=== PATIENT | female | born 1995 | race Caucasian/White ===

== ENCOUNTER 2019-02-22 10:32 | Emergency (ER) | payer MEDICAID, SELFPAY ==
[2019-02-22] VITALS (39 sets, daily range): BP systolic 60–128; BP diastolic 28–94; PULSE 56–96; RESP 7–29; TEMP 36.6; O2SAT 96–100
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
[2019-02-22] MEDS: fentaNYL 100 MCG/2 ML VIAL (10:49)
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
[2019-02-22 11:10] LABS: Abs Immature Grans 0.04 k/cumm (0.0-0.09); Absolute Basophil Count 0.07 k/cumm (0.0-0.2); Absolute Lymphocyte Count 2.53 k/cumm (1.2-3.4); Basophils % 0.5; Eosinophils % 1.3; HCT 45.9 % (36.0-46.0); HGB 15.7 g/dL (12.0-15.5); Immature Grans % 0.3; Lymphocytes % 18.9; Mean Corp. HGB Concentration 34.2 g/dL (32.0-36.0); Mean Corpuscular Hemoglobin 29.9 pg (27.0-33.0); Mean Corpuscular Volume 87.4 fL (80-95); Mean Platelet Volume 12.8 fL (8.0-11.0); Monocytes % 8.2; Neutrophils % 70.8; Platelet Count 221 x1000/uL (130-400); RBC 5.25 m/cumm (4.00-5.20); RBC Distribution Width 13.1 % (11.7-14.6); White Blood Cell Count 13.36 k/cumm (4.4-10.8)
[2019-02-22 11:17] LABS: Absolute Eosinophil Count 0.17 k/cumm (0.0-0.7); Absolute Neutrophil Count 9.46 k/cumm (1.2-6.7)
[2019-02-22 11:20] LABS: ALT 29 U/L (12-78); AST 17 U/L (15-37); Albumin 3.9 g/dL (3.4-5.0); Alkaline Phosphatase 82 U/L (46-116); Anion Gap 9.1 mmol/L (3-11); BUN 13 mg/dL (7-18); Bilirubin, Total 0.8 mg/dL (0.2-1.0); CO2 24.9 mmol/L (21.0-32.0); CREATININE 0.96 mg/dL (0.55-1.02); Calcium 8.8 mg/dL (8.5-10.1); Chloride 106 mmol/L (98-107); Glucose 113 mg/dL (70-100); Lipase 40 U/L (73-393); Potassium 3.9 mmol/L (3.5-5.1); Sodium 140 mmol/L (136-145); Total Protein 7.8 g/dL (6.4-8.2)
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
[2019-02-22 11:24] LABS: PTT Activated 22.8 sec (21.0-31.4); Prothrombin Time 10.1 sec (9.3-11.0)
[2019-02-22] MEDS: MORPHine 10 MG/ML VIAL 4 MG IVP (11:35)
[2019-02-22] MEDS: Omnipaque 350 MG/ML 100 ML BTL IJ (11:41)
--- NOTE | 2019-02-22 11:41 | NUR.NOTE ---
Nursing Note: Pt set up for conscious sedation and reduction of L. hip dislocation. MD Flores, ortho MD, 2 RN's and Respiratory at bedside. End tidal capnography monitoring in place. Suction and BVM on standby at bedside. Oxygen administered via nasal cannula. Times are as followed: 11:38: informed consent signed 11:40:time out 11:41: 40 mg propofol administered 11:42 additional 40 mg of propofol administered 11:43 Reduction completed
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
--- NOTE | 2019-02-22 11:59 | DI.RAD_ITS ---
SYMPTOM/DIAGNOSIS: POST REDUCTION PELVIS AND LEFT HIP: 02/22/19 Post reduction images were obtained and show reduction of the previously noted posterior left femoral head dislocation. No fracture seen.
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
[2019-02-22] MEDS: Normal Saline 1,000 ML 1000 ML IV (12:04)
[2019-02-22] MEDS: Propofol 200 MG/20 ML VIAL 70 MG IVP (12:18)
--- NOTE | 2019-02-22 12:50 | DI.VRAD_ITS ---
EXAM: XR Left Hip with Pelvis when Performed EXAM DATE/TIME: 02/22/2019 12:00 PM CLINICAL HISTORY: 24 years old, female; Abnormal findings; Abnormal imaging test; Patient HX: Post reduction hip L TECHNIQUE: Imaging protocol: XR Left hip with pelvis when performed. Views: 2 or 3 views. COMPARISON: CR XR pelvis AP 02/22/2019 11:27 AM FINDINGS: Bones/joints: There has interval been reduction of the left hip dislocation. The femoral head is now well seated within the acetabulum. No acute fracture is seen. Soft tissues: Normal. IMPRESSION: Successful reduction of the left hip dislocation. No acute fracture. Dictated and Authenticated by: Kristi Tobias MD. Ordering:LIN Carballo MD
--- NOTE | 2019-02-22 13:06 | NUR.NOTE ---
Nursing Note: reduction of hip tolerated well pt tolerated sedation well no complications
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
== END 2019-02-22 13:05 | disposition short-term general hospital (02) ==
PROVIDERS: Emergency Provider Student in an Organized Health Care Education/Training Program; PCP Neuromusculoskeletal Medicine & OMM
DX: S73.002A Unspecified subluxation of left hip, initial encounter (principal); S01.01XA Laceration without foreign body of scalp, initial encounter; R20.2 Paresthesia of skin; V43.53XA Car driver injured in collision with pick-up truck in traffic accident, initial encounter
CPT/HCPCS: 27250; 36415; 73552; 74177; 80053; 83690; 86850; 86900; 86901; 90471; 96374; 96375; 99285; 70450; 71260; 72125; 72170; 73502; 85025; 85610; 85730; 99284; J2270; J3010; J3490

== ENCOUNTER 2019-03-01 15:40 | Emergency (ER) | payer MEDICAID, SELFPAY ==
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
[2019-03-01 15:47] VITALS: BP 142/84; PULSE 90; RESP 15; TEMP 37; O2SAT 100
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
[2019-03-01 16:26] VITALS: BP 142/84; PULSE 90; RESP 15; TEMP 37; O2SAT 100
== END 2019-03-01 16:26 | disposition home or self-care (01) ==
PROVIDERS: Emergency Provider Student in an Organized Health Care Education/Training Program; PCP Neuromusculoskeletal Medicine & OMM
DX: S01.01XA Laceration without foreign body of scalp, initial encounter (principal); V43.52XD Car driver injured in collision with other type car in traffic accident, subsequent encounter; Z48.02 Encounter for removal of sutures

== ENCOUNTER 2019-03-04 19:11 | Emergency (ER) | payer MEDICAID, SELFPAY ==
[2019-03-04 19:17] VITALS: BP 132/80; PULSE 81; RESP 16; TEMP 36.5; O2SAT 98
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
== END 2019-03-04 19:35 | disposition home or self-care (01) ==
PROVIDERS: Emergency Provider Physician Assistant; PCP Neuromusculoskeletal Medicine & OMM
DX: S01.01XD Laceration without foreign body of scalp, subsequent encounter (principal); V43.53XD Car driver injured in collision with pick-up truck in traffic accident, subsequent encounter; Z48.02 Encounter for removal of sutures

== ENCOUNTER 2022-08-11 00:28 | Outpatient (CLI) | payer MEDICAID, SELFPAY ==
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
== END 2022-08-11 00:48 ==
LOC: DI 00:29
PROVIDERS: PCP Neuromusculoskeletal Medicine & OMM; Visit Provider Nurse Practitioner Women's Health
DX: Z34.93 Encounter for supervision of normal pregnancy, unspecified, third trimester (principal); Z3A.28 28 weeks gestation of pregnancy
CPT/HCPCS: 76805

== ENCOUNTER 2022-08-14 02:18 | Outpatient (CLI) | payer MEDICAID, SELFPAY ==
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
== END 2022-08-14 02:38 ==
LOC: DI 02:18
PROVIDERS: PCP Neuromusculoskeletal Medicine & OMM; Visit Provider Nurse Practitioner Women's Health
DX: Z34.93 Encounter for supervision of normal pregnancy, unspecified, third trimester (principal); Z3A.29 29 weeks gestation of pregnancy
CPT/HCPCS: 76815

== ENCOUNTER 2022-08-16 04:16 | Outpatient (CLI) | payer MEDICAID, SELFPAY ==
[2022-08-16 11:19] LABS: Abs Immature Grans 0.11 10^3/uL (0.0-0.06); Absolute Basophil Count 0.04 10^3/uL (0.0-0.2); Absolute Eosinophil Count 0.09 10^3/uL (0.0-0.7); Absolute Lymphocyte Count 1.19 10^3/uL (1.2-3.4); Absolute Monocyte Count 0.43 10^3/uL (0.1-0.8); Basophils % 0.4; Eosinophils % 0.9; HCT 28.6 % (36.0-46.0); HGB 9.3 g/dL (11.2-15.7); Immature Grans % 1.1; Lymphocytes % 12.3; MCH 29.2 pg (27.0-33.0); MCHC 32.5 % (32.0-36.0); MCV 90 fL (80-95); MPV 11.4 fL (8.0-11.0); Monocytes % 4.5; Neutrophils % 80.8; Platelet Count 143 10^3/uL (130-400); RBC 3.18 10^6/uL (3.93-5.22); RDW 15.1 % (11.7-14.6); RDW-SD 49.4 fL; WBC 9.66 10^3/uL (4.4-10.8)
[2022-08-16 11:29] LABS: Glucose,1 Hr (Glucola) 161 mg/dL (80-140)
[2022-08-17 09:56] LABS: Hepatitis B Surface Ag Negative (Negative)
[2022-08-17 10:07] LABS: Varicella IgG Antibody Positive (See Note)
[2022-08-17 10:09] LABS: Rubella IgG Ab (UVM) Negative (See Note)
[2022-08-17 10:20] LABS: Hepatitis C Ab w Rflx HCV PCR Negative (Negative)
[2022-08-17 10:30] LABS: HIV-1/2 Ag & Ab Screen Negative (Negative)
[2022-08-17 19:15] LABS: Syphilis IgG w/Reflex Nonreactive (Nonreactive)
[2022-08-28 09:55] LABS: Panorama Kit Sent via Fed Ex
== END 2022-08-16 04:17 | disposition home or self-care (01) ==
LOC: LBO 04:16
PROVIDERS: Advanced Practice Midwife; PCP Neuromusculoskeletal Medicine & OMM; Visit Provider Advanced Practice Midwife
DX: Z34.93 Encounter for supervision of normal pregnancy, unspecified, third trimester (principal)
CPT/HCPCS: 36415; 82950; 86787; 86803; 86850; 86900; 86901; 87340; 87389; 85025; 86762; 86780

== ENCOUNTER 2022-08-16 11:29 | Outpatient (REF) | payer MEDICAID, SELFPAY ==
[2022-08-16 13:52] LABS: *AMPHETAMINES SCREEN URINE Negative (Negative); *BARBITURATES SCREEN URINE Negative (Negative); *BENZODIAZEPINES SCREEN URINE Negative (Negative); Cannabinoids THC Positive (Negative); Cocaine Screen,Urine Negative (Negative); METHADONE URINE SCREEN Negative (Negative); OPIATES URINE SCREEN Negative (Negative)
[2022-08-16 13:53] LABS: Tricyclic Antidepressants Negative (Negative)
[2022-08-19 14:01] LABS: Buprenorphine Negative ng/mL (Cutoff: 5.0)
== END 2022-08-16 11:30 | disposition home or self-care (01) ==
LOC: LBN 11:29
PROVIDERS: PCP Neuromusculoskeletal Medicine & OMM; Visit Provider Advanced Practice Midwife
DX: Z34.91 Encounter for supervision of normal pregnancy, unspecified, first trimester (principal)
CPT/HCPCS: 80307; 80348; 87086

== ENCOUNTER 2022-08-24 01:45 | Outpatient (CLI) | payer MEDICAID, SELFPAY ==
[2022-08-24 12:27] LABS: Glucose 1 Hour 178 mg/dL
[2022-08-24 14:25] LABS: Glucose 3 Hour 140 mg/dL
== END 2022-08-24 01:46 | disposition home or self-care (01) ==
LOC: LBO 01:45
PROVIDERS: PCP Neuromusculoskeletal Medicine & OMM; Visit Provider Advanced Practice Midwife
DX: R73.09 Other abnormal glucose (principal); Z34.93 Encounter for supervision of normal pregnancy, unspecified, third trimester
CPT/HCPCS: 36415; 82951

== ENCOUNTER 2022-08-29 19:31 | Outpatient (REF) | payer MEDICAID, SELFPAY ==
[2022-08-31 15:00] LABS: Chlamydia Result Negative (Negative); GC Result Negative (Negative)
== END 2022-08-29 19:32 | disposition home or self-care (01) ==
LOC: LBN 19:31
PROVIDERS: PCP Neuromusculoskeletal Medicine & OMM; Visit Provider Obstetrics & Gynecology
DX: O24.410 Gestational diabetes mellitus in pregnancy, diet controlled (principal); Z3A.30 30 weeks gestation of pregnancy
CPT/HCPCS: 87491; 87591

== ENCOUNTER 2022-09-22 11:40 | Outpatient (CLI) | payer MEDICAID, SELFPAY | END 2022-09-22 14:45 | LOC: BCD 11:41 → OBS 13:06 | PROVIDERS: PCP Neuromusculoskeletal Medicine & OMM; Visit Provider Obstetrics & Gynecology | CPT/HCPCS: 80053; 84550 ==

== ENCOUNTER 2022-10-04 02:21 | Outpatient (CLI) | payer MEDICAID, SELFPAY ==
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
== END 2022-10-04 02:41 ==
LOC: DI 02:21
PROVIDERS: PCP Neuromusculoskeletal Medicine & OMM; Visit Provider Obstetrics & Gynecology
DX: O24.410 Gestational diabetes mellitus in pregnancy, diet controlled (principal); Z3A.35 35 weeks gestation of pregnancy
CPT/HCPCS: 76816

== ENCOUNTER 2022-10-04 13:28 | Outpatient (REF) | payer MEDICAID, SELFPAY ==
[2022-10-04 13:33] LABS: *AMPHETAMINES SCREEN URINE Negative (Negative); *BARBITURATES SCREEN URINE Negative (Negative); *BENZODIAZEPINES SCREEN URINE Negative (Negative); Cannabinoids THC Positive (Negative); Cocaine Screen,Urine Negative (Negative); METHADONE URINE SCREEN Negative (Negative); OPIATES URINE SCREEN Negative (Negative)
[2022-10-04 13:39] LABS: Tricyclic Antidepressants Negative (Negative)
[2022-10-16 08:04] LABS: Buprenorphine Negative ng/mL (Cutoff: 5.0)
== END 2022-10-04 13:29 | disposition home or self-care (01) ==
LOC: LBN 13:28
PROVIDERS: PCP Neuromusculoskeletal Medicine & OMM; Visit Provider Obstetrics & Gynecology
DX: Z34.90 Encounter for supervision of normal pregnancy, unspecified, unspecified trimester (principal); O26.899 Other specified pregnancy related conditions, unspecified trimester; R80.9 Proteinuria, unspecified
CPT/HCPCS: 80307; 80348; 87081

== ENCOUNTER 2022-10-09 02:37 | Outpatient (CLI) | payer MEDICAID, SELFPAY ==
[2022-10-09 11:15] LABS: Abs Immature Grans 0.13 10^3/uL (0.0-0.06); Absolute Basophil Count 0.03 10^3/uL (0.0-0.2); Absolute Lymphocyte Count 1.39 10^3/uL (1.2-3.4); Absolute Monocyte Count 0.61 10^3/uL (0.1-0.8); Absolute Neutrophil Count 8.41 10^3/uL (1.2-6.7); Basophils % 0.3; Eosinophils % 0.9; HCT 30.5 % (36.0-46.0); HGB 9.8 g/dL (11.2-15.7); Immature Grans % 1.2; MCH 28.3 pg (27.0-33.0); MCHC 32.1 % (32.0-36.0); MCV 88 fL (80-95); MPV 11.4 fL (8.0-11.0); Monocytes % 5.7; Neutrophils % 78.9; Platelet Count 150 10^3/uL (130-400); RBC 3.46 10^6/uL (3.93-5.22); RDW 15.9 % (11.7-14.6); WBC 10.67 10^3/uL (4.4-10.8)
[2022-10-09 11:34] LABS: ALT 10 U/L (14-59); AST 9 U/L (15-37); Albumin 2.5 g/dL (3.4-5.0); Alkaline Phosphatase 126 U/L (46-116); Anion Gap 9.5 mmol/L (3-11); BUN 7 mg/dL (7-18); Bilirubin, Total 0.4 mg/dL (0.2-1.0); CO2 22.5 mmol/L (21.0-32.0); CREATININE 0.7 mg/dL (0.55-1.02); Calcium 8.6 mg/dL (8.5-10.1); Chloride 107 mmol/L (98-107); Estimated GFR 119.99 (mL/min/1.73m2); Glucose 140 mg/dL (74-106); Potassium 3.9 mmol/L (3.5-5.1); Sodium 139 mmol/L (136-145); Total Protein 6.6 g/dL (6.4-8.2)
[2022-10-09 19:42] LABS: PROTEIN 23.7 mg/dL (0.0-11.9); TOTAL PROTEIN,URINE TIMED 497.7 mg/24hr (0.0-149.1); Total Volume 2100 ml
== END 2022-10-09 02:38 | disposition home or self-care (01) ==
LOC: LBO 02:37
PROVIDERS: Advanced Practice Midwife; Obstetrics & Gynecology; PCP Neuromusculoskeletal Medicine & OMM; Visit Provider Advanced Practice Midwife
DX: O24.410 Gestational diabetes mellitus in pregnancy, diet controlled (principal); R80.9 Proteinuria, unspecified; Z3A.36 36 weeks gestation of pregnancy
CPT/HCPCS: 36415; 80053; 85027; 81050; 84155; 85025

== ENCOUNTER 2022-10-09 07:04 | Outpatient (CLI) | payer MEDICAID, SELFPAY ==
[2022-10-09 10:17] VITALS: BP 114/61; PULSE 85; TEMP 36.4
[2022-10-09 10:40] VITALS: BP 114/61; PULSE 85
--- NOTE | 2022-10-09 11:40 | W.OBNST ---
Date of service: 10/09/22 Time of Service: 10:50 NST Evaluation Reason for NST Reasons for Nonstress Test: GDM-INSULIN Gestational Age Gestational Age in Weeks and Days: 36 Weeks and 5Days Test and Monitor Explained Test/Monitor Explained: Test Explained, Monitor Explained and Patient Verbalized Understanding Vital Signs Blood Pressure: 114/61 Pulse: 85 Temperature: 97.6 F Urine Results Urine Protein: Positive Urine Ketones: Negative Urine Glucose: Negative Urine Blood: Negative NST Information Time on Monitor: 10:31 Date off Monitor: 10/09/22 Time off Monitor: 10:54 Contraction Frequency: 0 NST Evaluation Patient States Movement: Present FHR Baseline: 135 Variability: Moderate 6-25 bpm Accelerations: 15x15 Decelerations: None NST Results: Reactive Note N/A NST Note Note: NST is reactive and reassuring. Consult with Dr. Dotson as BG's (only fastings recorded) are elevated. Will increase her Lantus to 8 units at HS. I have strongly encouraged her to avoid simple sugars and carbs, to eat protein and vegetables and record her BG's for fasting and all PP until her return NST in 3 days. Plan will be to schedule IOL for 39 weeks unless otherwise indicated by BG's. She has completed a 24 hour urine and will go to lab after NST today. MELI NST Reviewed and Verified by: July Fox
[2022-10-09 11:41] VITALS: BP 114/61; PULSE 85; TEMP 36.4
== END 2022-10-09 10:58 | disposition home or self-care (01) ==
LOC: BCD 07:05 → OBS 10:03
PROVIDERS: PCP Neuromusculoskeletal Medicine & OMM; Visit Provider Advanced Practice Midwife
DX: O24.410 Gestational diabetes mellitus in pregnancy, diet controlled (principal); Z3A.36 36 weeks gestation of pregnancy
CPT/HCPCS: 59025

== ENCOUNTER 2022-10-12 07:19 | Outpatient (CLI) | payer MEDICAID, SELFPAY ==
[2022-10-12 13:20] VITALS: BP 131/58; PULSE 100
[2022-10-12 13:58] VITALS: BP 131/58; PULSE 100; TEMP 37
--- NOTE | 2022-10-12 14:04 | W.OBNST ---
Date of service: 10/12/22 Time of Service: 13:30 NST Evaluation Reason for NST Reasons for Nonstress Test: GDM-INSULIN Gestational Age Gestational Age in Weeks and Days: 37 Weeks and 1Days Test and Monitor Explained Test/Monitor Explained: Test Explained, Monitor Explained and Patient Verbalized Understanding Vital Signs Blood Pressure: 131/58 Pulse: 100 Temperature: 98.6 F Urine Results Urine Protein: Negative Urine Ketones: Negative Urine Glucose: Negative Urine Blood: Negative NST Information Date on Monitor: 10/12/22 Time on Monitor: 13:06 Date off Monitor: 10/12/22 Time off Monitor: 13:29 Total Time on Monitor: 23 NST Interventions: None Contraction Frequency: 0 NST Evaluation Patient States Movement: Present FHR Baseline: 150 Variability: Moderate 6-25 bpm Accelerations: 15x15 Decelerations: None NST Results: Reactive Note N/A NST Note Note: NST is reactive and reassuring. BG's remain elevated X 6 since Sunday. Will review with Dr. Smith. will return Sunday10/16/22. NST Reviewed and Verified by: July Fox
[2022-10-12 14:05] VITALS: BP 131/58; PULSE 100; TEMP 37
== END 2022-10-12 14:02 | disposition home or self-care (01) ==
LOC: BCD 07:19 → OBS 13:07
PROVIDERS: PCP Neuromusculoskeletal Medicine & OMM; Visit Provider Advanced Practice Midwife
DX: O24.410 Gestational diabetes mellitus in pregnancy, diet controlled (principal); Z3A.37 37 weeks gestation of pregnancy
CPT/HCPCS: 59025

== ENCOUNTER 2022-10-18 07:21 | Outpatient (CLI) | payer MEDICAID, SELFPAY ==
[2022-10-18 12:52] VITALS: BP 119/59; PULSE 90
[2022-10-18 13:41] VITALS: BP 119/59; PULSE 90; TEMP 36.6
--- NOTE | 2022-10-18 13:51 | W.OBNST ---
Date of service: 10/18/22 Time of Service: 13:51 NST Evaluation Reason for NST Reasons for Nonstress Test: GDM-INSULIN Gestational Age Gestational Age in Weeks and Days: 38 Weeks and 0Days Test and Monitor Explained Test/Monitor Explained: Test Explained, Monitor Explained and Patient Verbalized Understanding Vital Signs Blood Pressure: 119/59 Pulse: 90 Temperature: 97.9 F Urine Results Urine Protein: Negative Urine Ketones: Negative Urine Glucose: Negative Urine Blood: Negative NST Information Date on Monitor: 10/18/22 Time on Monitor: 12:38 Date off Monitor: 10/18/22 Time off Monitor: 12:56 Total Time on Monitor: 18 NST Interventions: Other Contraction Frequency: 0 NST Evaluation Patient States Movement: Present FHR Baseline: 150 Variability: Moderate 6-25 bpm Accelerations: 15x15 Decelerations: None NST Results: Reactive Note JUDI (GDM) Total JUDI: 9.88 Other Pertinent Findings: Presentation (cephalic) Coding for JUDI w/NST: Completed Exam NST Note Note: Category 1, reactive nonstress test. Bedside ultrasound performed for JUDI measures 9.88 cm. Fetus is vertex. NST Reviewed and Verified by: Deanna Smith
[2022-10-18 13:53] VITALS: BP 119/59; PULSE 90; TEMP 36.6
--- NOTE | 2022-10-18 13:54 | W.OBNST ---
Date of service: 10/18/22 Time of Service: 12:55 NST Evaluation Reason for NST Reasons for Nonstress Test: GDM-INSULIN Gestational Age Gestational Age in Weeks and Days: 38 Weeks and 0Days Test and Monitor Explained Test/Monitor Explained: Test Explained, Monitor Explained and Patient Verbalized Understanding Vital Signs Blood Pressure: 119/59 Pulse: 90 Temperature: 97.9 F Urine Results Urine Protein: Negative Urine Ketones: Negative Urine Glucose: Negative Urine Blood: Negative NST Information Date on Monitor: 10/18/22 Time on Monitor: 12:38 Date off Monitor: 10/18/22 Time off Monitor: 12:56 Total Time on Monitor: 18 NST Interventions: Other Contraction Frequency: 0 NST Evaluation Patient States Movement: Present FHR Baseline: 150 Variability: Moderate 6-25 bpm Accelerations: 15x15 Decelerations: None NST Results: Reactive Note N/A (see separate note by Dr. Smith. ) NST Note Note: NST is reactive and reassuring. Fasting BG for past 2 days still 100-103, will increase Lantus to 12 units in morning and [address] Smith also did JUDI today 9.88. Baby is direct OP on US today and I reviewed positions to try to encourage baby to rotate prior to IOL 10/26 at 39 weeks. She will return on Saturday 10/21 for NST and review of BG's. NST Reviewed and Verified by: July Fox
[2022-10-18 13:57] VITALS: BP 119/59; PULSE 90; TEMP 36.6
== END 2022-10-18 13:35 | disposition home or self-care (01) ==
LOC: BCD 07:31 → OBS 12:37
PROVIDERS: PCP Neuromusculoskeletal Medicine & OMM; Visit Provider Advanced Practice Midwife
DX: O24.414 Gestational diabetes mellitus in pregnancy, insulin controlled (principal); Z3A.38 38 weeks gestation of pregnancy
CPT/HCPCS: 59025

== ENCOUNTER 2022-10-21 07:39 | Outpatient (CLI) | payer MEDICAID, SELFPAY ==
[2022-10-21 12:00] VITALS: BP 131/60; PULSE 96; TEMP 36.8
--- NOTE | 2022-10-21 13:02 | W.OBNST ---
Date of service: 10/21/22 Time of Service: 12:15 NST Evaluation Reason for NST Reasons for Nonstress Test: GDM-INSULIN Gestational Age Gestational Age in Weeks and Days: 38 Weeks and 3Days Test and Monitor Explained Test/Monitor Explained: Test Explained, Monitor Explained and Patient Verbalized Understanding Vital Signs Blood Pressure: 131/60 Pulse: 96 Temperature: 98.2 F NST Information Date on Monitor: 10/21/22 Time on Monitor: 11:57 Date off Monitor: 10/21/22 Time off Monitor: 12:20 Total Time on Monitor: 23 NST Interventions: None Contraction Frequency: None NST Evaluation Patient States Movement: Present FHR Baseline: 145 Variability: Moderate 6-25 bpm Accelerations: 15x15 Decelerations: None NST Results: Reactive Note N/A NST Note Note: NST is reactive and reassuring. Insulin increased to 20 units at HS and to remain at 12 units in am. Consult with Dr. Dotson done. Will return for NST in 2 days, IOL 10/26. NST Reviewed and Verified by: July Fox
[2022-10-21 13:03] VITALS: BP 131/60; PULSE 96; TEMP 36.8
== END 2022-10-21 12:30 | disposition home or self-care (01) ==
LOC: BCD 07:50 → OBS 13:01
PROVIDERS: PCP Neuromusculoskeletal Medicine & OMM; Visit Provider Advanced Practice Midwife
DX: O24.414 Gestational diabetes mellitus in pregnancy, insulin controlled (principal); Z3A.38 38 weeks gestation of pregnancy
CPT/HCPCS: 59025

== ENCOUNTER 2022-10-23 07:57 | Outpatient (REF) | payer MEDICAID, SELFPAY ==
[2022-10-23 11:28] VITALS: BP 120/54; PULSE 86; TEMP 36.8
[2022-10-23 11:39] VITALS: BP 120/54; PULSE 86
--- NOTE | 2022-10-23 12:07 | W.OBNST ---
Date of service: 10/23/22 Time of Service: 11:45 NST Evaluation Reason for NST Reasons for Nonstress Test: GDM-INSULIN Gestational Age Gestational Age in Weeks and Days: 38 Weeks and 5Days Test and Monitor Explained Test/Monitor Explained: Test Explained, Monitor Explained and Patient Verbalized Understanding Vital Signs Blood Pressure: 120/54 Pulse: 86 Temperature: 98.2 F NST Information Date on Monitor: 10/23/22 Time on Monitor: 11:29 Date off Monitor: 10/23/22 Time off Monitor: 11:58 Total Time on Monitor: 29 NST Interventions: PO Hydration NST Evaluation Patient States Movement: Present FHR Baseline: 130 Variability: Moderate 6-25 bpm Accelerations: 15x15 Decelerations: None NST Results: Reactive Note N/A NST Note Note: NST is reactive and reassuring. BG's remain elevated, reviewed with Dr. Dotson and will increase both insulin doses for 4 units. New RX sent for 16 units in am and 24 at HS. NST Reviewed and Verified by: July Fox
[2022-10-23 12:09] VITALS: BP 120/54; PULSE 86; TEMP 36.8
== END 2022-10-23 11:59 | disposition home or self-care (01) ==
LOC: BCD 07:57
PROVIDERS: PCP Neuromusculoskeletal Medicine & OMM; Visit Provider Advanced Practice Midwife
DX: O24.414 Gestational diabetes mellitus in pregnancy, insulin controlled (principal); Z3A.38 38 weeks gestation of pregnancy
CPT/HCPCS: 59025

== ENCOUNTER 2022-10-26 13:05 | Inpatient (IN) | payer MEDICAID, SELFPAY ==
[2022-10-26 13:15] VITALS: BP 134/77; PULSE 107; RESP 16; TEMP 36.9
[2022-10-26 14:21] LABS: HCT 31.6 % (36.0-46.0); HGB 10.1 g/dL (11.2-15.7); MCH 27.6 pg (27.0-33.0); MCV 86 fL (80-95); MPV 11.8 fL (8.0-11.0); Platelet Count 157 10^3/uL (130-400); RBC 3.66 10^6/uL (3.93-5.22); RDW 15.8 % (11.7-14.6); RDW-SD 49.6 fL; WBC 11.07 10^3/uL (4.4-10.8)
[2022-10-26 14:26] LABS: Source Nasal/Nares
--- NOTE | 2022-10-26 14:34 | W.PM.OBHPL1 ---
Date of service: 10/26/22 Time of Service: 14:34 Assessment and Plan Assessment and plan (1) Encounter for induction of labor: Status: Acute Assessment and plan: Admit to Center. Comfort measures. Covid- 19 test. Membranes sweep performed due to favorable cervix and bulging membranes. Will consider misoprostol or AROM as indicated by cervical change. Anticipate . (2) Gestational diabetes: Status: Acute Assessment and plan: CMP on admission. Per consult with MD group on 10/24, will perform Finger stick blood glucose testing every 4 hours in early labor and hourly if indicated in active labor. Consider insulin infusion PRN. Regular diet with gestational diabetic food choices. I have recommended that Hailee avoid sweets during labor. (3) Proteinuria: Status: Acute Assessment and plan: admission UA, await results OB-HPI Labor/Delivery History of Present Illness Reason for Visit: Induction Chief Complaint: Scheduled Induction of Labor Indication for Induction: Gestational Diabetes (insulin controlled). LYNDSEY Calculator Estimated Delivery Date Method Current WG Current Estimate 11/01/22 Ultrasound #1 39w 1d Comments: Hailee is admitted for induction of labor due to insulin controlled gestational diabetes. Blood sugars have been in poor control with increasing doses of insulin required to manage. Proteinuria noted during with BP in normal range.Admission BP 134/77. History of Present Expected Delivery Route/Plan - CNM FOB - Bryan Leoncio (2nd child together) BG Specific Issues/Plan 1. Late entry to care at 28 weeks. 2. CF negative 2009 (in scanned labs) 3. panorama low risk x5 (no gender ID as it was identified on US) declines SMA 4. History of retained placenta and manual removal 2021, no transfusion or extended stay 5. Glucola at 161 @ 29 wks, 3 hr GTT F105/1h 178/2h 189/3h 140 5a. began testing 08/29 and bring log to next appt 5b. Dietary consult 08/29, 5c. Elevated fasting glucose, appt sched'ed for 09/25, DNKA Lantus 4 U 10/04 6. Hgb 9.3 at 29 wks, start oral iron supplement 7. Initial UDS at 29 weeks + THC, POSC discussed, repeat at 34-36 weeks 8. Rubella non-immune - discuss with Hailee, offer vaccine post 9. Had 2+ protein 08/29/22 per MD consult 09/19/22; 24 hour urine + protienuria, continue present management per consult with DR. Smith 10. IOL at 39 weeks____ PFSH All Active Problems (Updated 10/26/22 @ 14:38 by July Bedoya CNM) Encounter for induction of labor (Acute) Proteinuria (Acute) Depression (Chronic) Gestational diabetes (Acute) Rubella non-immune status, antepartum (Acute) Positive urine drug screen (Acute) thc + 29 weeks Elevated glucose (Acute) BMI 40.0-44.9, adult (Acute) (Acute) Late care (Acute) (Acute) Asthma (Chronic) uses inhaler Medical History (Updated 10/26/22 @ 14:38 by July Bedoya CNM) ASCUS with positive high risk HPV cervical (06/15/14) History of abnormal cervical Pap smear Normal 2018 and 2021 History of retained placenta manual removal, 2021 no blood transfusion No significant past medical history Surgical History No significant past surgical history Family History (Updated 08/16/22 @ 10:12 by July Fox CNM) Father Diabetes Maternal Grandmother Diabetes Maternal Grandfather Diabetes Self Depression sees pychiatrist Mili Vergara Mother Asthma Other Stroke Social History Smoking/Tobacco Use Status: Current every day Tobacco Type: cigarettes Smoking risk assessment performed?: Yes Alcohol Intake: current Alcohol Intake frequency: a few times a week Alcohol type: beer, wine and hard liquor Drug use: Never Substance use type: does not use Do you feel safe at home: Yes Do you feel safe in your relationship?: Yes History History 4 Para 3 Hx # Term Pregnancies 3 Multiple births Hx # Pregnancies Ectopic pregnancies AB induced Hx Number of Living Children AB spontaneous Past Pregnancies Del. Date GA/Weeks # Preg Succ Route Wgt Sex Labor Lgth Anesthesia Location [facility] 01/17/11 41 No Yes vaginal 6 lb 2 oz Female 12 Marisabel Castillo CN[facility] 03/20/15 40 No Yes vaginal 7 lb 8 oz Male 12 [facility] 11/30/21 39 No Yes vaginal 6 lb 3 oz Female 4 [facility] Delivery Date: 01/17/11 Last Updated by: July Bedoya CNM [place] Delivery Date: 03/20/15 Last Updated by: July Bedoya CNM [place] Delivery Date: 11/30/21 Last Updated by: July Bedoya CNM retained placenta with manual removal, Rapid delivey, Dee Dee Meds Allergies and Home Medications Allergies Allergy/AdvReac Type Severity Reaction Status Date / Time No Known Drug Allergies Allergy Verified 10/18/22 13:12 Home Medications Medication Instructions Recorded Confirmed Type albuterol sulfate 0.63 mg/3 mL 0.63 mg inhalation QID PRN 08/02/22 10/26/22 History solution for nebulization ferrous sulfate 325 mg (65 mg 325 mg PO DAILY #90 tabs 08/16/22 10/26/22 Rx iron) tablet,delayed release alcohol swabs (Alcohol Pads) 1 pad topical .4 times daily #100 08/24/22 10/26/22 Rx ea lancets #100 ea 08/24/22 10/18/22 Rx prenat.vits,enedina,[id number] 1 tab PO DAILY #30 tabs 09/13/22 10/26/22 Rx lancets 33 gauge (OneTouch Delica #100 ea 09/15/22 10/18/22 Rx Lancets) lancing device with lancets kit #100 ea 09/20/22 10/18/22 Rx (OneTouch Delica Lancing Device kit) blood sugar diagnostic (OneTouch #100 ea 09/21/22 10/18/22 Rx Ultra Test strips) pen needle, diabetic 33 gauge x #100 ea 10/04/22 10/18/22 Rx 3/16 (Comfort EZ Pen [place]) insulin glargine 100 unit/mL (3 16 unit (0.16 mL) subcut QAM #15 mL 10/23/22 10/26/22 Rx mL) subcutaneous pen (Lantus Solostar U-100 Insulin) insulin glargine 100 unit/mL (3 24 unit (0.24 mL) subcut QPM #15 mL 10/23/22 10/26/22 Rx mL) subcutaneous pen (Lantus Solostar U-100 Insulin) Exam Physical Exam Vital signs: Temp Pulse Resp BP 98.4 F 107 H 16 134/77 10/26/22 13:15 10/26/22 13:15 10/26/22 13:15 10/26/22 13:15 Detailed Labor and Delivery Exam Dilation: 2 Effacement (%): 80 station: -1 Cervix position: posterior Consistency: soft Johnson Score: Cervical Points Exam 0 1 2 3 Dilation Closed 1-2cm 3-4 cm 5-6cm Effacement 0-30% 40-50% 60-70% 80% Consistency Firm Medium Soft Station -3 -2 -1,0 +1,+2 Position Posterior Mid Anterior JOHNSON Score(Cervical Ripeness Score): 8 Amniotic Membrane Status: Intact Monitor Mode: External Contraction Frequency(min): irregular, mild Contraction Duration(sec): 60 Contraction Intensity: Mild Fetus A Heart Rate Baseline: 140 Monitor Accelerations: 15 X 15 Monitor Decelerations: None Variability: Moderate (6-25 BPM) Presentation: Vertex Categories: Category I Respiratory Exam Respiratory Exam: Normal Cardiovascular Exam Cardiovascular Exam: Normal Abdominal Exam Abdominal Exam: Normal Rectal Exam Rectal Exam: Normal Exam Exam: Normal Extremities Exam Extremities Exam: Normal Skin Exam Skin Exam: Normal Psychiatric Exam Psychiatric Exam: Normal Results Abnormal Lab Findings: Abnormal Labs 10/26/22 14:05 WBC 11.07 H RBC 3.66 L Hgb 10.1 L Hct 31.6 L RDW 15.8 H MPV 11.8 H Risk Assessment Risk for Shoulder Dystocia Historical/Initial OB: POSITIVE FOR: Pre- BMI>30; NEGATIVE FOR: Pelvic Abnormality, Previous Shoulder Dystocia or Previous Macrosomia 40 Weeks: NEGATIVE FOR: EFW> 4500 gms, Maternal Weight Gain >40lb or Post Dates Delivery Plan @ 40 wks: induction of labor at 39 weeks, increased risk due to EFW by jennifer's largest for her, increased maternal adipose tissue, Insulin dependent GDM. KH Risk for Pre-Eclampsia Date Initiated/Initials: 08/16/22 KH Yes, if one or more: NEGATIVE FOR: Hx Pre-E/Gest HTN, Chronic HTN, Multiple Gestation, Pre-gestational DM, Renal Disease, Systemic Lupus or APA Syndrome Yes, if 2 or more: POSITIVE FOR: BMI>30; NEGATIVE FOR: Nulliparity, Age>= 35 yrs, >10yr btwn pregnancies, ethinicty, Mother/Sister w/ Pre-E or Previous IUGR Risk for Post- Hemorrhage Initial: POSITIVE FOR: Previous PPH; NEGATIVE FOR: Multiple Gestation, Known Clotting Deficiency, Grand Multiparity or Anticoagulation At Risk?: Yes Risks Reviewed Risks Reviewed Upon Admission: Yes
[2022-10-26 14:43] LABS: ALT 13 U/L (14-59); AST 11 U/L (15-37); Albumin 2.6 g/dL (3.4-5.0); Alkaline Phosphatase 144 U/L (46-116); Anion Gap 8.5 mmol/L (3-11); BUN 7 mg/dL (7-18); Bilirubin, Total 0.5 mg/dL (0.2-1.0); CO2 21.5 mmol/L (21.0-32.0); CREATININE 0.7 mg/dL (0.55-1.02); Calcium 8.5 mg/dL (8.5-10.1); Chloride 107 mmol/L (98-107); Estimated GFR 119.99 (mL/min/1.73m2); Glucose 80 mg/dL (74-106); Potassium 3.9 mmol/L (3.5-5.1); Sodium 137 mmol/L (136-145); Total Protein 6.9 g/dL (6.4-8.2)
[2022-10-26 15:07] VITALS: BP 135/62; PULSE 96
[2022-10-26 15:08] LABS: COVID-19 PCR Negative (Negative)
[2022-10-26 15:48] LABS: Bilirubin Negative (Negative); Blood Trace-intact (Negative); Clarity Sl Cloudy (Clear); Glucose Negative (Negative); Ketones Negative (Negative); Leukocyte Esterase Negative (Negative); Nitrite Negative (Negative); Specific Gravity 1.025 (1.005-1.025); pH 6.5 (5-8)
[2022-10-26 15:49] LABS: Bacteria Few HPF (Negative); C & S Indicated? No/Sq. Contamination; Casts Negative LPF (Negative); Crystals Negative HPF (Negative); Epithelial Cells Many HPF (Negative); Mucus Trace (Negative); RBC 0-2 HPF (0-2)
--- NOTE | 2022-10-26 16:28 | W.PM.OBNL1 ---
Date of service: 10/26/22 Time of Service: 16:28 Pelvic Exam Dilation: 2 Effacement (%): 80 station: -1 Cervix Position: posterior Consistency: soft BISHOPS Score(Cervical Ripeness Score): 8 Contractions Monitor Mode: External Contraction Frequency(min): irregular Contraction Duration(sec): 50 Intensity: Mild Fetus A Amniotic Membrane Status: Intact Assessment Note: FHR 140 Assessment and Plan Assessment and plan (1) Encounter for induction of labor: Status: Acute Assessment and plan: Due to the census on the unit, further cervical ripening is not possible at this time. I will continue to assess for changes in labor pattern and consider discharge later tonight if induction is not possible with return tomorrow for IOL. Objective Abnormal lab results 10/26/22 10/26/22 10/26/22 Range/Units 14:05 14:05 14:45 WBC 11.07 H (4.4-10.8) 10^3/uL RBC 3.66 L (3.93-5.22) 10^6/uL Hgb 10.1 L (11.2-15.7) g/dL Hct 31.6 L (36.0-46.0) % RDW 15.8 H (11.7-14.6) % MPV 11.8 H (8.0-11.0) fL AST 11 L (15-37) U/L ALT 13 L (14-59) U/L Alkaline Phosphatase 144 H (46-116) U/L Albumin 2.6 L (3.4-5.0) g/dL Urine Protein Trace H (Negative) mg/dL Urine Blood Trace-intact H (Negative) Urine Urobilinogen 2.0 H (Up to 0.2) mg/dL Temp Pulse Resp BP 98.4 F 96 H 16 135/62 10/26/22 13:15 10/26/22 15:07 10/26/22 13:15 10/26/22 15:07 Laboratory Results WBC 11.07 10^3/uL (4.4-10.8) H 10/26/22 14:05 RBC 3.66 10^6/uL (3.93-5.22) L 10/26/22 14:05 Hgb 10.1 g/dL (11.2-15.7) L 10/26/22 14:05 Hct 31.6 % (36.0-46.0) L 10/26/22 14:05 MCV 86 fL (80-95) 10/26/22 14:05 MCH 27.6 pg (27.0-33.0) 10/26/22 14:05 MCHC 32.0 % (32.0-36.0) 10/26/22 14:05 RDW 15.8 % (11.7-14.6) H 10/26/22 14:05 Plt Count 157 10^3/uL (130-400) 10/26/22 14:05 MPV 11.8 fL (8.0-11.0) H 10/26/22 14:05 Sodium 137 mmol/L (136-145) 10/26/22 14:05 Potassium 3.9 mmol/L (3.5-5.1) 10/26/22 14:05 Chloride 107 mmol/L (98-107) 10/26/22 14:05 Carbon Dioxide 21.5 mmol/L (21.0-32.0) 10/26/22 14:05 Anion Gap 8.5 mmol/L (3-11) 10/26/22 14:05 BUN 7 mg/dL (7-18) 10/26/22 14:05 Creatinine 0.7 mg/dL (0.55-1.02) 10/26/22 14:05 Est GFR (CKD-EPI 2020) 119.99 (mL/min/1.73m2) 10/26/22 14:05 Glucose 80 mg/dL (74-106) 10/26/22 14:05 Calcium 8.5 mg/dL (8.5-10.1) 10/26/22 14:05 Total Bilirubin 0.5 mg/dL (0.2-1.0) 10/26/22 14:05 AST 11 U/L (15-37) L 10/26/22 14:05 ALT 13 U/L (14-59) L 10/26/22 14:05 Alkaline Phosphatase 144 U/L (46-116) H 10/26/22 14:05 Total Protein 6.9 g/dL (6.4-8.2) 10/26/22 14:05 Albumin 2.6 g/dL (3.4-5.0) L 10/26/22 14:05 Urine Color Yellow (Yellow) 10/26/22 14:45 Urine Clarity Sl Cloudy (Clear) 10/26/22 14:45 Urine pH 6.5 (5-8) 10/26/22 14:45 Ur Specific [place] 1.025 (1.005-1.025) 10/26/22 14:45 Urine Protein Trace mg/dL (Negative) H 10/26/22 14:45 Urine Ketones Negative mg/dL (Negative) 10/26/22 14:45 Urine Blood Trace-intact (Negative) H 10/26/22 14:45 Urine Nitrite Negative (Negative) 10/26/22 14:45 Urine Bilirubin Negative (Negative) 10/26/22 14:45 Urine Urobilinogen 2.0 mg/dL (Up to 0.2) H 10/26/22 14:45 Ur Leukocyte Esterase Negative (Negative) 10/26/22 14:45 Urine RBC 0-2 HPF (0-2) 10/26/22 14:45 Urine WBC 3-5 HPF (0-5) 10/26/22 14:45 Ur Epithelial Cells Many HPF (Negative) 10/26/22 14:45 Urine Crystals Negative HPF (Negative) 10/26/22 14:45 Urine Bacteria Few HPF (Negative) 10/26/22 14:45 Urine Casts Negative LPF (Negative) 10/26/22 14:45 Urine Mucus Trace (Negative) 10/26/22 14:45 Ur Culture Indicated? No/Sq. Contamination 10/26/22 14:45 Urine Glucose Negative mg/dL (Negative) 10/26/22 14:45 COVID-19 Source Nasal/Nares 10/26/22 14:20 SARS-CoV-2 (PCR) Negative (Negative) 10/26/22 14:20 Patient ABO/Rh O Positive 10/26/22 14:05 Antibody Screen NEGATIVE 10/26/22 14:05 Subjective Interval history since last seen: Hailee reports mild cramping and increased pressure. Random blood sugars 76 and 80. Results Hemoglobin/Hematocrit: Hgb 10.1 g/dL (11.2-15.7) L 10/26/22 14:05 Hct 31.6 % (36.0-46.0) L 10/26/22 14:05 Abnormal Lab Findings: Abnormal Labs 10/26/22 10/26/22 10/26/22 14:05 14:05 14:45 WBC 11.07 H RBC 3.66 L Hgb 10.1 L Hct 31.6 L RDW 15.8 H MPV 11.8 H AST 11 L ALT 13 L Alkaline Phosphatase 144 H Albumin 2.6 L Urine Protein Trace H Urine Blood Trace-intact H Urine Urobilinogen 2.0 H
[2022-10-26 17:50] VITALS: BP 118/56; PULSE 89; TEMP 36.7
[2022-10-26] MEDS: Insulin Glargine 300 UNITS/3 ML PEN 24 UNITS SC (20:11)
[2022-10-26 20:15] VITALS: BP 124/64; PULSE 96
--- NOTE | 2022-10-27 02:06 | W.PM.OBDISCH ---
Date of service: 10/26/22 Time of Service: 22:00 DS: Diagnosis Discharge Diagnosis (1) Gestational diabetes: Status: Acute Asessment and Plan: Hailee was having mild irregular contractions after cervical exams were performed. She was observed for a 4 hour period after the second exam was performed and there was no evidence of active labor. Urine protein was trace and blood sugar was WNL. Due to the census on the unit, IOL was not possible today. She was given the option of sleeping at the hospital or at home and resuming IOL when the unit census allows. She elected to go home to rest and will attempt induction of labor tomorrow. I will call Hailee in the morning to plan a time to return. Discharge Plan Disposition Patient Disposition: Home Condition: Good Discharge Details Reason For Visit: Induction Admit Date/Time: 10/26/22 13:05 Admit Provider: July Bedoya Attending Provider: July Bedoya Primary Care Provider: Michael Fairchild Home Meds and New Rx's Prescriptions: Continued albuterol sulfate 0.63 mg/3 mL solution for nebulization 0.63 mg inhalation QID PRN prenat.vits,enedina,[id number] Tablet 1 tab PO DAILY Qty: 30 8RF (DME) pen needle, diabetic [Comfort EZ Pen [place]] 33 gauge x 3/16 needle See Rx Instructions .Route Qty: 100 1RF Rx Instructions: As directed ferrous sulfate 325 mg (65 mg iron) tablet,delayed release (DR/EC) 325 mg PO DAILY Qty: 90 3RF alcohol swabs [Alcohol Pads] Pads, Medicated 1 pad topical .4 times daily Qty: 100 2RF (DME) lancets Misc See Rx Instructions .Route Qty: 100 0RF Rx Instructions: 4 times daily (DME) lancets [OneTouch Delica Lancets] 33 gauge misc See Rx Instructions .Route Qty: 100 3RF Rx Instructions: 4 times daily (DME) lancing device with lancets [OneTouch Delica Lanc Device] Kit See Rx Instructions .Route Qty: 100 2RF Rx Instructions: As directed (DME) OneTouch Ultra Test Strip See Rx Instructions .Route Qty: 100 3RF Rx Instructions: 4 times daily No Action insulin glargine [Lantus Solostar U-100 Insulin] 100 unit/mL (3 mL) insulin pen 16 unit subcut QAM Qty: 15 1RF insulin glargine [Lantus Solostar U-100 Insulin] 100 unit/mL (3 mL) insulin pen 24 unit subcut QPM Qty: 15 1RF Rx Instructions: 16 units subcutaneously every morning and 24 units subcutaneously every HS Discharge Instructions Activity:: Activity as Tolerated Equipment/Supplies:: No Equipment Needed Diet:: Normal Diet Discharge Orders Discharge Orders: Discharge Order (Routine); Ordered 10/26/22 Ordered By: July Bedoya Discharge Data Discharge Date/Time-TO BE ENTERED AT DEPARTURE: 10/26/22 20:47 OB:DS Summary Contraception Discussed Contraception Discussed: No, Status at Discharge Functional status at discharge: independent ambulation Overall status at discharge: patient is back to baseline Mental Status: mental status grossly normal Speech and Movement: speech and movement normal Mood: congruent mood Affect: normal affect Exam Physical Exam Vital signs: Temp Pulse Resp BP 98.1 F 96 H 16 124/64 10/26/22 17:50 10/26/22 20:15 10/26/22 13:15 10/26/22 20:15 PFSH All Active Problems (Updated 10/27/22 @ 02:14 by July Bedoya CNM) Depression (Chronic) Gestational diabetes (Acute) Rubella non-immune status, antepartum (Acute) Positive urine drug screen (Acute) thc + 29 weeks Elevated glucose (Acute) BMI 40.0-44.9, adult (Acute) (Acute) Late care (Acute) (Acute) Asthma (Chronic) uses inhaler Medical History (Updated 10/27/22 @ 02:14 by July Bedoya CNM) ASCUS with positive high risk HPV cervical (06/15/14) History of abnormal cervical Pap smear Normal 2018 and 2021 History of retained placenta manual removal, 2021 no blood transfusion No significant past medical history Surgical History No significant past surgical history Family History (Updated 08/16/22 @ 10:12 by July Fox CNM) Father Diabetes Maternal Grandmother Diabetes Maternal Grandfather Diabetes Self Depression sees pychiatrist Mili Vergara Mother Asthma Other Stroke Social History Smoking/Tobacco Use Status: Current every day Tobacco Type: cigarettes Smoking risk assessment performed?: Yes Alcohol Intake: current Alcohol Intake frequency: a few times a week Alcohol type: beer, wine and hard liquor Drug use: Never Substance use type: does not use Do you feel safe at home: Yes Do you feel safe in your relationship?: Yes History History 4 Para 3 Hx # Term Pregnancies 3 Multiple births Hx # Pregnancies Ectopic pregnancies AB induced Hx Number of Living Children AB spontaneous Past Pregnancies Del. Date GA/Weeks # Preg Succ Route Wgt Sex Labor Lgth Anesthesia Location [facility] 01/17/11 41 No Yes vaginal 6 lb 2 oz Female 12 Marisabel Castillo CNM 03/20/15 40 No Yes vaginal 7 lb 8 oz Male 12 [facility] [place] by [facility] 11/30/21 39 No Yes vaginal 6 lb 3 oz Female 4 [facility] Delivery Date: 01/17/11 Last Updated by: July Bedoya CNM [facility] Delivery Date: 03/20/15 Last Updated by: July Bedoya CNM [facility] Delivery Date: 11/30/21 Last Updated by: July Bedoya CNM retained placenta with manual removal, Dee Dee Amos DS: Data Vitals/I&O Vitals and I&O: Vital Signs Temperature 98.1 F 10/26/22 17:50 Temperature Source Oral 10/26/22 17:50 Pulse 96 H 10/26/22 20:15 Pulse Rhythm Regular 10/26/22 13:15 Respiratory Rate 16 10/26/22 13:15 Blood Pressure 124/64 10/26/22 20:15 Blood Pressure Mean 84 10/26/22 20:15 Oxygen Delivery Method Room Air 10/26/22 13:15 Oxygen Flow Rate 0 10/26/22 13:15 Pain Level 0 10/26/22 13:15 Intake & Output 10/26/22 10/26/22 10/27/22 11:59 23:59 11:59 Output Total 125 / 125 Balance -125 / -125 Weight 230 lb Output: Urine 125 / 125 Data Completed and Pending Labs on day of discharge: Labs from last 24 hours 10/26/22 10/26/22 10/26/22 14:45 14:20 14:05 WBC RBC Hgb Hct MCV MCH MCHC RDW Plt Count MPV Sodium 137 Potassium 3.9 Chloride 107 Carbon Dioxide 21.5 Anion Gap 8.5 BUN 7 Creatinine 0.7 Est GFR (CKD-EPI 2020) 119.99 Glucose 80 Calcium 8.5 Total Bilirubin 0.5 AST 11 L ALT 13 L Alkaline Phosphatase 144 H Total Protein 6.9 Albumin 2.6 L Urine Color Yellow Urine Clarity Sl Cloudy Urine pH 6.5 Ur Specific [place] 1.025 Urine Protein Trace H Urine Ketones Negative Urine Blood Trace-intact H Urine Nitrite Negative Urine Bilirubin Negative Urine Urobilinogen 2.0 H Ur Leukocyte Esterase Negative Urine RBC 0-2 Urine WBC 3-5 Ur Epithelial Cells Many Urine Crystals Negative Urine Bacteria Few Urine Casts Negative Urine Mucus Trace Ur Culture Indicated? No/Sq. Contamination Urine Glucose Negative COVID-19 Source Nasal/Nares SARS-CoV-2 (PCR) Negative Patient ABO/Rh Antibody Screen 10/26/22 10/26/22 14:05 14:05 WBC 11.07 H RBC 3.66 L Hgb 10.1 L Hct 31.6 L MCV 86 MCH 27.6 MCHC 32.0 RDW 15.8 H Plt Count 157 MPV 11.8 H Sodium Potassium Chloride Carbon Dioxide Anion Gap BUN Creatinine Est GFR (CKD-EPI 2020) Glucose Calcium Total Bilirubin AST ALT Alkaline Phosphatase Total Protein Albumin Urine Color Urine Clarity Urine pH Ur Specific [place] Urine Protein Urine Ketones Urine Blood Urine Nitrite Urine Bilirubin Urine Urobilinogen Ur Leukocyte Esterase Urine RBC Urine WBC Ur Epithelial Cells Urine Crystals Urine Bacteria Urine Casts Urine Mucus Ur Culture Indicated? Urine Glucose COVID-19 Source SARS-CoV-2 (PCR) Patient ABO/Rh O Positive Antibody Screen NEGATIVE
== END 2022-10-26 20:47 | disposition home or self-care (01) | DRG 832 ==
LOC: OBS 13:58
PROVIDERS: Admitting Provider Advanced Practice Midwife; PCP Neuromusculoskeletal Medicine & OMM; Visit Provider Advanced Practice Midwife
DX: O24.414 Gestational diabetes mellitus in pregnancy, insulin controlled (principal); O12.13 Gestational proteinuria, third trimester; Z3A.39 39 weeks gestation of pregnancy; Z53.8 Procedure and treatment not carried out for other reasons; O99.333 Smoking (tobacco) complicating pregnancy, third trimester; F17.210 Nicotine dependence, cigarettes, uncomplicated; O99.513 Diseases of the respiratory system complicating pregnancy, third trimester; J45.909 Unspecified asthma, uncomplicated; Z79.899 Other long term (current) drug therapy; Z20.822 Contact with and (suspected) exposure to COVID-19
CPT/HCPCS: 80053; 85027; 86850; 86900; 86901; 87635; 81003; 81015

== ENCOUNTER 2022-10-27 10:47 | Inpatient (IN) | payer MEDICAID, SELFPAY ==
[2022-10-27 12:04] VITALS: BP 116/65; PULSE 80
[2022-10-27 12:05] VITALS: BP 116/65; PULSE 80; RESP 16; TEMP 36.5
[2022-10-27] MEDS: miSOPROStol 25 MCG TAB PO (12:46)
[2022-10-27] MEDS: Insulin Glargine 300 UNITS/3 ML PEN 16 UNITS SC (12:59)
[2022-10-27 16:14] VITALS: BP 113/77; PULSE 93
[2022-10-27] MEDS: miSOPROStol 50 MCG TAB PO ×2 (17:16→21:15)
--- NOTE | 2022-10-27 18:44 | W.PM.OBHPL1 ---
Date of service: 10/27/22 Time of Service: 13:00 Assessment and Plan Assessment and plan (1) Gestational diabetes: Status: Acute Assessment and plan: Admit to Center. Comfort measures. Covid- 19 test negative yesterday. fingerstick Blood sugar every 4 hours while awake. Will start cervical ripening with misoprostol. Morning dose of insulin was ordered as Hailee has not taken insulin today. Lunch is ordered. Anticipate . OB-HPI Labor/Delivery History of Present Illness Reason for Visit: Gestational Diabetes Chief Complaint: Scheduled Induction of Labor Indication for Induction: Gestational Diabetes (diet controlled). LYNDSEY Calculator Estimated Delivery Date Method Current WG Current Estimate 11/01/22 Ultrasound #1 39w 2d Comments: Hailee was admitted yesterday for induction due to gestational diabetes which is insulin controlled. She is currently taking 16 units in the morning and 24 units in the evening. Due to census yesterday at the Center, she was discharged to home and returned this morning to resume induction. History of Present Expected Delivery Route/Plan - CNM FOB - Bryan Fang (2nd child together) BG Specific Issues/Plan 1. Late entry to care at 28 weeks. 2. CF negative 2009 (in scanned labs) 3. panorama low risk x5 (no gender ID as it was identified on US) declines SMA 4. History of retained placenta and manual removal 2021, no transfusion or extended stay 5. Glucola at 161 @ 29 wks, 3 hr GTT F105/1h 178/2h 189/3h 140 5a. began testing 08/29 and bring log to next appt 5b. Dietary consult 08/29, 5c. Elevated fasting glucose, MD appt sched'ed for 09/25, DNKA Lantus 4 U 10/04 6. Hgb 9.3 at 29 wks, start oral iron supplement 7. Initial UDS at 29 weeks + THC, POSC discussed, repeat at 34-36 weeks 8. Rubella non-immune - discuss with Hailee, offer vaccine post 9. Had 2+ protein 08/29/22 per MD consult 09/19/22; 24 hour urine + protienuria, continue present management per consult with DR. Smith 10. IOL at 39 weeks____ PFSH All Active Problems (Updated 10/27/22 @ 02:14 by July Bedoya CNM) Depression (Chronic) Gestational diabetes (Acute) Rubella non-immune status, antepartum (Acute) Positive urine drug screen (Acute) thc + 29 weeks Elevated glucose (Acute) BMI 40.0-44.9, adult (Acute) (Acute) Late care (Acute) (Acute) Asthma (Chronic) uses inhaler Medical History (Updated 10/27/22 @ 02:14 by July Bedoya CNM) ASCUS with positive high risk HPV cervical (06/15/14) History of abnormal cervical Pap smear Normal 2018 and 2021 History of retained placenta manual removal, 2021 no blood transfusion No significant past medical history Surgical History No significant past surgical history Family History (Updated 08/16/22 @ 10:12 by July Fox CNM) Father Diabetes Maternal Grandmother Diabetes Maternal Grandfather Diabetes Self Depression sees pychiatrist Mili Vergara Mother Asthma Other Stroke Social History Smoking/Tobacco Use Status: Current every day Tobacco Type: cigarettes Smoking risk assessment performed?: Yes Alcohol Intake: current Alcohol Intake frequency: a few times a week Alcohol type: beer, wine and hard liquor Drug use: Never Substance use type: does not use Do you feel safe at home: Yes Do you feel safe in your relationship?: Yes History History 4 Para 3 Hx # Term Pregnancies 3 Multiple births Hx # Pregnancies Ectopic pregnancies AB induced Hx Number of Living Children AB spontaneous Past Pregnancies Del. Date GA/Weeks # Preg Succ Route Wgt Sex Labor [facility] 41 No Yes vaginal 6 lb 2 oz Female 12 [facility] 03/20/15 40 No Yes vaginal 7 lb 8 oz Male 12 [facility] 11/30/21 39 No Yes vaginal 6 lb [address] [facility] Delivery Date: 01/17/11 Last Updated by: KATE Perdomo Delivery Date: 03/20/15 Last Updated by: July Bedoya CNM [facility] Delivery Date: 11/30/21 Last Updated by: July Bedoya CNM retained placenta with manual removal, Rapid Dee Dee swanson Meds Allergies and Home Medications Allergies Allergy/AdvReac Type Severity Reaction Status Date / Time No Known Drug Allergies Allergy Verified 10/18/22 13:12 Home Medications Medication Instructions Recorded Confirmed Type albuterol sulfate 0.63 mg/3 mL 0.63 mg inhalation QID PRN 08/02/22 10/27/22 History solution for nebulization ferrous sulfate 325 mg (65 mg 325 mg PO DAILY #90 tabs 08/16/22 10/27/22 Rx iron) tablet,delayed release alcohol swabs (Alcohol Pads) 1 pad topical .4 times daily #100 08/24/22 10/27/22 Rx ea lancets #100 ea 08/24/22 10/27/22 Rx prenat.vits,enedina,[id number] 1 tab PO DAILY #30 tabs 09/13/22 10/27/22 Rx lancets 33 gauge (OneTouch Delica #100 ea 09/15/22 10/27/22 Rx Lancets) lancing device with lancets kit #100 ea 09/20/22 10/27/22 Rx (OneTouch Delica Lancing Device kit) blood sugar diagnostic (OneTouch #100 ea 09/21/22 10/27/22 Rx Ultra Test strips) pen needle, diabetic 33 gauge x #100 ea 10/04/22 10/27/22 Rx 3/16 (Comfort EZ Pen [place]) insulin glargine 100 unit/mL (3 16 unit (0.16 mL) subcut QAM #15 mL 10/23/22 10/27/22 Rx mL) subcutaneous pen (Lantus Solostar U-100 Insulin) insulin glargine 100 unit/mL (3 24 unit (0.24 mL) subcut QPM #15 mL 10/23/22 10/27/22 Rx mL) subcutaneous pen (Lantus Solostar U-100 Insulin) Exam Physical Exam Vital signs: Temp Pulse Resp BP 97.7 F 93 H 16 113/77 10/27/22 12:05 10/27/22 16:14 10/27/22 12:05 10/27/22 16:14 Detailed Labor and Delivery Exam Dilation: 2 Effacement (%): 70 station: -2 Cervix position: posterior Consistency: soft Ojhnson Score: Cervical Points Exam 0 1 2 3 Dilation Closed 1-2cm 3-4 cm 5-6cm Effacement 0-30% 40-50% 60-70% 80% Consistency Firm Medium Soft Station -3 -2 -1,0 +1,+2 Position Posterior Mid Anterior JOHNSON Score(Cervical Ripeness Score): 6 Monitor Mode: External Contraction Frequency(min): occasional Contraction Duration(sec): 50 Contraction Intensity: Mild Fetus A Heart Rate Baseline: 135 Monitor Accelerations: 15 X 15 Monitor Decelerations: None Variability: Moderate (6-25 BPM) Presentation: Vertex Categories: Category I Respiratory Exam Respiratory Exam: Normal Cardiovascular Exam Cardiovascular Exam: Normal Abdominal Exam Abdominal Exam: Normal Exam Exam: Normal Extremities Exam Extremities Exam: Normal Skin Exam Skin Exam: Normal Psychiatric Exam Psychiatric Exam: Normal Results Results Group Beta Strep: Negative Blood Type: O+ Rubella Status: Nonimmune Varicella Immunity: Immune Risk Assessment Risk for Shoulder Dystocia Historical/Initial OB: POSITIVE FOR: Pre- BMI>30; NEGATIVE FOR: Pelvic Abnormality, Previous Shoulder Dystocia or Previous Macrosomia 40 Weeks: NEGATIVE FOR: EFW> 4500 gms, Maternal Weight Gain >40lb or Post Dates Increased Risk?: Yes Delivery Plan @ 40 wks: induction of labor at 39 weeks, increased risk due to EFW by jennifer's largest for her, increased maternal adipose tissue, Insulin dependent GDM. KH Risk for Pre-Eclampsia Daily Dose ASA Indicated: No Date Initiated/Initials: 08/16/22 Yes, if one or more: NEGATIVE FOR: Hx Pre-E/Gest HTN, Chronic HTN, Multiple Gestation, Pre-gestational DM, Renal Disease, Systemic Lupus or APA Syndrome Yes, if 2 or more: POSITIVE FOR: BMI>30; NEGATIVE FOR: Nulliparity, Age>= 35 yrs, >10yr btwn pregnancies, ethinicty, Mother/Sister w/ Pre-E or Previous IUGR Risk for Post- Hemorrhage Initial: POSITIVE FOR: Previous PPH; NEGATIVE FOR: Multiple Gestation, Known Clotting Deficiency, Grand Multiparity or Anticoagulation At Risk?: No Risks Reviewed Risks Reviewed Upon Admission: Yes
--- NOTE | 2022-10-27 18:55 | W.PM.OBNL1 ---
Date of service: 10/27/22 Time of Service: 18:55 Contractions Monitor Mode: External Contraction Frequency(min): irregular Contraction Duration(sec): 50 Intensity: Mild Fetus A Monitor: External (US) Heart Rate Baseline: 135 Presentation: Vertex Variability: Moderate (6-25 BPM) Categories: Category I Accelerations: 15 X 15 Decelerations: None Amniotic Membrane Status: Intact Assessment and Plan Assessment and plan (1) Gestational diabetes: Status: Acute Assessment and plan: Will hold evening insulin dose if blood sugar remains under 130. Hailee is eating a diabetic diet and avoiding added sugar beverages. (2) Encounter for induction of labor: Status: Resolved Assessment and plan: Continue to assess labor pattern. Patient's status reviewed with Dr. Smith who was present on the unit at 1700 and anticipate . Objective Temp Pulse Resp BP 97.7 F 93 H 16 113/77 10/27/22 12:05 10/27/22 16:14 10/27/22 12:05 10/27/22 16:14 Subjective Interval history since last seen: Hailee is experiencing mild contractions which are irregular. Most recent blood sugar is 103.
[2022-10-27 19:28] VITALS: BP 123/58; PULSE 95
[2022-10-27 20:38] VITALS: PULSE 99; O2SAT 97
[2022-10-27 20:44] VITALS: BP 113/77; PULSE 93; RESP 16; TEMP 36.8; O2SAT 98
[2022-10-28] VITALS (66 sets, daily range): BP systolic 96–144; BP diastolic 50–76; PULSE 75–148; RESP 4–20; TEMP 36.6–37.2; O2SAT 94–100
--- NOTE | 2022-10-28 01:48 | W.PM.OBNL1 ---
Date of service: 10/28/22 Time of Service: 01:48 Pelvic Exam Dilation: 2 Effacement (%): 70 station: -2 Cervix Position: posterior Consistency: soft BISHOPS Score(Cervical Ripeness Score): 6 Contractions Monitor Mode: External Contraction Frequency(min): every 2-3 Contraction Duration(sec): 50 Intensity: Moderate Fetus A Monitor: External (US) Heart Rate Baseline: 140 Presentation: Vertex Variability: Moderate (6-25 BPM) Categories: Category I Accelerations: 15 X 15 Decelerations: None Assessment and Plan Assessment and plan (1) Gestational diabetes: Status: Acute Assessment and plan: Most recent blood sugars 91 and 110. Evening dose of insulin was held and will consider insulin infusion if blood sugar elevations occur. (2) Encounter for induction of labor: Status: Resolved Assessment and plan: position changes encouraged for comfort. nitrous oxide provided for pain relief. Will re-assess in 2-3 hours or when indicated for pain relief options. Objective Temp Pulse Resp BP Pulse Ox 98.8 F 90 16 128/59 L 98 10/28/22 00:14 10/28/22 00:14 10/27/22 20:44 10/28/22 00:14 10/27/22 20:44 Laboratory Results Patient ABO/Rh O Positive 10/27/22 21:07 Antibody Screen NEGATIVE 10/27/22 21:07 Subjective Interval history since last seen: Hailee is experiencing back ache. She would like to discuss pain relief options.
[2022-10-28] MEDS: Lactated Ringers 1,000 ML 125 ML IV (03:18)
[2022-10-28] MEDS: Normal Saline Flush 10 ML SYR IVP (03:21)
--- NOTE | 2022-10-28 03:29 | W.ANESPRE ---
General Info Date of Service Date Performed: 10/28/22 Height: 5 ft 1 in Weight: 230 g Body Mass Index (BMI): 0.1 Meds Allergies and Home Medications Allergies Allergy/AdvReac Type Severity Reaction Status Date / Time No Known Drug Allergies Allergy Verified 10/18/22 13:12 Home Medication Medication Instructions Recorded albuterol sulfate 0.63 mg/3 mL 0.63 mg inhalation QID PRN 08/02/22 solution for nebulization ferrous sulfate 325 mg (65 mg 325 mg PO DAILY #90 tabs 08/16/22 iron) tablet,delayed release alcohol swabs (Alcohol Pads) 1 pad topical .4 times daily #100 08/24/22 ea lancets #100 ea 08/24/22 prenat.vits,enedina,jbi-uclv-lkhze 1 tab PO DAILY #30 tabs 09/13/22 lancets 33 gauge ([place] Loop Trolley #100 ea 09/15/22 Lancets) lancing device with lancets kit #100 ea 09/20/22 ([employer]als Lancing Device kit) blood sugar diagnostic ([place] #100 ea 09/21/22 Ultra Test strips) pen needle, diabetic 33 gauge x #100 ea 10/04/22 3/16 (Comfort EZ Pen [place]) insulin glargine 100 unit/mL (3 16 unit (0.16 mL) subcut QAM #15 mL 10/23/22 mL) subcutaneous pen (Lantus Solostar U-100 Insulin) insulin glargine 100 unit/mL (3 24 unit (0.24 mL) subcut QPM #15 mL 10/23/22 mL) subcutaneous pen (Lantus Solostar U-100 Insulin) Current Visit Medications: Current Medications Generic Name Dose Route Start Last Admin Trade Name Freq PRN Reason Stop Dose Admin Ringer's Solution 1,000 mls @ 200 mls/hr 10/27/22 11:00 10/28/22 03:18 IV 125 mls/hr INFUSION KARIN Administration Sodium Chloride 500 mls @ 0 mls/hr 10/27/22 10:47 Saline 500ml Bag IV PRN PRN As Directed IV Miscellaneous Supplies 1 each 10/27/22 11:00 Iv Access IV DIRECTED [facility] Insulin Glargine 16 units 10/27/22 12:45 10/27/22 12:59 Insulin Glargine 300 Units/3 Ml Pen SC 16 units QAM KARIN Administration Misoprostol 50 mcg 10/27/22 19:30 10/27/22 21:15 Misoprostol 50 Mcg Tab PO 50 mcg Q4H KARIN Administration Sodium Chloride 0 ml 10/27/22 10:47 10/28/22 03:21 Normal Saline Flush 10 Ml Syr IVP 10 ml PRN PRN Administration Terbutaline Sulfate 0.25 mg 10/27/22 10:47 Terbutaline 1 Mg/Ml Vial SC PRN PRN Zolpidem Tartrate 10 mg 10/27/22 21:00 Zolpidem 5 Mg Tab PO 10/28/22 06:00 2100 KARIN PFSH Active Problems Active Problems: Problem Status Onset Code Depression F32.A Gestational diabetes O24.419 Rubella non-immune status, antepartum O09.899, Z28.39 Positive urine drug screen R82.5 Elevated glucose R73.09 BMI 40.0-44.9, adult Z68.41 Z34.90 Late care O09.30 Z34.90 Asthma J45.909 Medical History Medical History (Updated 10/27/22 @ 02:14 by July Bedoya CNM) ASCUS with positive high risk HPV cervical (06/15/14) History of abnormal cervical Pap smear Normal 2018 and 2021 History of retained placenta manual removal, 2021 no blood transfusion No significant past medical history Surgical History Surgical History No significant past surgical history Tobacco Smoking/Tobacco Use Status: Current every day Tobacco Type: cigarettes Alcohol Alcohol Intake: current Alcohol intake frequency: a few times a week Alcohol type: beer, wine and hard liquor Substance Use Substance use: Never Substance use type: does not use Prental History History 4 Para 3 Hx # Term Pregnancies 3 Multiple births Hx # Pregnancies Ectopic pregnancies AB induced Hx Number of Living Children AB spontaneous Past Pregnancies Del. Date GA/Weeks # Preg Succ Route Wgt Sex Labor Lgth Anesthesia Location [facility] 01/17/11 41 No Yes [facility] 2778.253 [facility] No Yes vaginal 3401.943 g Male 12 [facility] 11/30/21 39 No Yes vaginal 2806.603 g Female 4 [place] Delivery Date: 01/17/11 Last Updated by: July Bedoya CNM [place] Delivery Date: 03/20/15 Last Updated by: July Bedoya CNM Mathe[place] Delivery Date: 11/30/21 Last Updated by: July Bedoya CNM retained placenta with manual removal, Rapid delivey, Dee Dee Vital Signs and Lab Results Vital Signs Most Recent Vital Signs in EMR: Most Recent Vital Signs Temp Pulse Resp BP Pulse Ox 36.8 C 90 16 128/59 L 98 10/28/22 03:21 10/28/22 00:14 10/27/22 20:44 10/28/22 00:14 10/27/22 20:44 Point of Care Results Point of Care Results: Finger Stick Blood Glucose 110 10/28/22 00:28 Lab Results Blood Type / Crossmatch: Patient ABO/Rh O Positive 10/27/22 Antibody Screen NEGATIVE 10/27/22 Complete Blood Count: White Blood Count 11.07 10^3/uL (4.4-10.8) H 10/26/22 14:05 Red Blood Count 3.66 10^6/uL (3.93-5.22) L 10/26/22 14:05 Hemoglobin 10.1 g/dL (11.2-15.7) L 10/26/22 14:05 Hematocrit 31.6 % (36.0-46.0) L 10/26/22 14:05 Platelet Count 157 10^3/uL (130-400) 10/26/22 14:05 Complete Metabolic Panel: Sodium 137 mmol/L (136-145) 10/26/22 14:05 Potassium 3.9 mmol/L (3.5-5.1) 10/26/22 14:05 Chloride 107 mmol/L (98-107) 10/26/22 14:05 Carbon Dioxide 21.5 mmol/L (21.0-32.0) 10/26/22 14:05 BUN 7 mg/dL (7-18) 10/26/22 14:05 Creatinine 0.7 mg/dL (0.55-1.02) 10/26/22 14:05 Est GFR (CKD-EPI 2020) 119.99 (mL/min/1.73m2) 10/26/22 14:05 Calcium 8.5 mg/dL (8.5-10.1) 10/26/22 14:05 Albumin 2.6 g/dL (3.4-5.0) L 10/26/22 14:05 Glucose 80 mg/dL (74-106) 10/26/22 14:05 Liver Function Panel: Alanine Aminotransferase (ALT/SGPT) 13 U/L (14-59) L 10/26/22 14:05 Aspartate Amino Transf (AST/SGOT) 11 U/L (15-37) L 10/26/22 14:05 Coagulation Panel: No Data to Display Cardiac Panel: No Data to Display Arterial Blood Gas: No Data to Display Venous Blood Gas: No Data to Display Pancreas Panel: No Data to Display Thyroid Panel: No Data to Display Infectious Disease: Coronavirus (COVID-19)(PCR) Negative (Negative) 10/26/22 14:20 Coronavirus 2019 Source Nasal/Nares 10/26/22 14:20 Blood Cultures: No Data to Display Toxicology Panel: Urine Amphetamines Screen Negative (Negative) 10/04/22 10:30 Urine Benzodiazepines Screen Negative (Negative) 10/04/22 10:30 Urine Barbiturates Screen Negative (Negative) 10/04/22 10:30 Urine Cocaine Screen Negative (Negative) 10/04/22 10:30 Urine Methadone Screen Negative (Negative) 10/04/22 10:30 Urine Opiates Screen Negative (Negative) 10/04/22 10:30 Ur Tricyclic Antidepressants Screen Negative (Negative) 10/04/22 10:30 Ur Tetrahydrocannabinol (THC) Scrn Positive (Negative) A 10/04/22 10:30 Panel: No Data to Display Anesthesia Assessment and Plan Anesthesia History Personal History: No History of Anesthesia Complications Family History: No Family History of Anesthesia Complications Exercise Tolerance Exercise Tolerance: Metabolic Equivalents>4 Cardiac & Pulmonary Exam Cardiac Exam: Normal S1/S2 Heart Sounds Pulmonary Exam: Clear Bilateral Breath Sounds Implantable Cardiac Device Does patient have a Pacemaker or an ICD?: No Airway Exam Known Difficult Airway: No Mallampati Class: 3 Mouth Opening: Normal (> 3cm) Thyromental Distance: Greater than 3 cm Neck Range of Motion: Full ROM Neck Circumference: Thick Teeth Condition: Normal Dentition ASA Classification ASA Score: ASA 3 Emergency Case?: No NPO Status NPO Status: Full Stomach Status Status: Confirmed Anesthesia Plan Resuscitation Status: Full Code Anesthesia Technique: Epidural Anesthesia Airway Planned: Natural Airway Pain Management: Epidural Monitors Used: Standard Monitors Preoperative Comments:: 27 yo female here for IOL requesting labor analgesia. 3 cm, 80% at 0314. Sig PMHx: BMI >40, depression, gestational DM (currently lantus), asthma (albuterol-rare, mostly with colds), Plt 157
[2022-10-28] MEDS: FentaNYL/ROPIvacaine 2 mcg/ml and 0.1% 200 ML CADD Cassette EP (03:52)
--- NOTE | 2022-10-28 04:14 | W.ANESNEU ---
Nerve Block Single Injection Procedure Date and Time Date Performed: 10/28/22 Procedure Start: 04:00 Location Where Procedure Performed Procedure Location: Obstetrics
--- NOTE | 2022-10-28 04:17 | W.ANESNEU ---
Epidural/Spinal Catheter Date Performed: 10/28/22 Procedure Start: 03:43 Procedure Stop: 04:00 Requesting Provider: July Bedoya Procedure Location: Obstetrics Reason Performed: Labor Epidural Standard Monitors Applied: ECG, Blood Pressure and SpO2 Patient Position: Sitting Sedation Given (Indicate Dose Given): No Sedation given Patient Mental Status: Awake Sterility: Hand Hygiene, Surgical Cap, Surgical Mask, Sterile Gloves, Sterile Drape/Sheet and Chlorhexidine Procedure Location: L2-L3 Interspace Epidural Needle: Tuohy 17 Guage Needle Length: 3.5 Inch Needle Approach: Midline Epidural Procedure: GRETCHEN to Saline Used, Epidural Catheter Placed (wire reinforced. ) and Negative CSF Flow Catheter Placed?: Catheter Placed Test Dose (Indicate Dose Given): 3ml 1.5% Lidocaine with 1:200K Epinephrine Given Loss of Resistance Depth (cm): 6 Catheter depth at skin (cm): 12 Dressing: Sorbaview Dressing Placed and Mastisol Used Epidural Provider Bolus (Indicate Dose Given): Total Ropivacaine 0.1% with Fentanyl 2mcg/ml Given from pump. (ml) Dose:: 5 mL Additives (Indicate Dose Given ): None Infusion Medication: Medication Infusion Began Medication Infusion: Ropivacaine 0.1% with Fentanyl 2mcg/ml Maintenance Infusion Rate (ml/hour): 10 PCEA Bolus Dose (ml): 5 Block Level: N/A Paresthesia: None Ultrasound: Used to jonathan site Number of Attempts (See previous attempts in note section): 1 Procedure Tolerated: No Complications Procedure Outcome: Successful Procedure Comment:: 5 mL load. BP down assocc with nausea, IVF bolus was started by OB. educated on PCEA. lose of cold sensation bilaterally. Performed By: Jack Oviedo
[2022-10-28] MEDS: Lactated Ringers 500 ML IV (04:19)
--- NOTE | 2022-10-28 04:39 | W.PM.OBNL1 ---
Date of service: 10/28/22 Time of Service: 04:39 Pelvic Exam Dilation: 3 Effacement (%): 90 station: -2 Position: LOP Cervix Position: mid Consistency: soft Comments: AROM perfrmed for a large amount of clear fluid Contractions Monitor Mode: External Contraction Frequency(min): every 3 minutes Contraction Duration(sec): 60 Intensity: Moderate Fetus A Monitor: External (US) Heart Rate Baseline: 150 Presentation: Vertex Variability: Moderate (6-25 BPM) Categories: Category I Accelerations: 15 X 15 Decelerations: None Amniotic Membrane Status: Ruptured Rupture Method: Artifical Amniotic Fluid: Clear Assessment and Plan Assessment and plan (1) Gestational diabetes: Status: Acute Assessment and plan: Blood sugar pending due to battery on meter charging. Await results. (2) Encounter for induction of labor: Status: Resolved Assessment and plan: Anticipate , re-examine in 2 hours or PRN. Objective Temp Pulse Resp BP Pulse Ox 98.3 F 100 H 16 128/61 99 10/28/22 04:13 10/28/22 04:30 10/27/22 20:44 10/28/22 04:30 10/28/22 04:05 Laboratory Results Patient ABO/Rh O Positive 10/27/22 21:07 Antibody Screen NEGATIVE 10/27/22 21:07 Subjective Interval history since last seen: Hailee began to feel more discomfort and she requested an epidural. Jack MOTA was paged and provided epidural which is having excellent effect.
[2022-10-28 04:40] LABS: Source Nasal/Nares
[2022-10-28] MEDS: Oxytocin/Normal Saline 30 UNIT/500 ML BAG 1 UNITS IV (05:06)
[2022-10-28 05:33] LABS: COVID-19 PCR Negative (Negative)
[2022-10-28] MEDS: miSOPROStol 200 MCG TAB 400 MCG SL (07:47)
[2022-10-28] MEDS: Methylergonovine 0.2 MG/ML VIAL (07:56)
[2022-10-28] MEDS: Lactated Ringers 1,000 ML 999 ML IV (08:05)
--- NOTE | 2022-10-28 08:32 | PLAC_PTH ---
PATIENT: Hailee Bae LOC: OBS U#:[id number] AGE/SX: 27/F ROOM: OBS.304 RE10/27/[address]: July Bedoya : 1995 BED: A DIS: 10/30/2022 SPEC #: [id number] RECD: 10/30/22 12:11 STATUS: AARON REQ #: [id number] HALINA: 10/28/22 08:[address]: July Bedoya DEPT: Surgical Specimen RECD BY: Jazzy Mckoy ENTERED: 10/30/22 12:16 SP TYPE: PLAC OTHR DR: Michael Fairchild Tissues: 1 - PLACENTA (3RD TRIMESTER) 2 - ,SPONTANEOUS Procedures: GROSS AND MICRO LEVEL 4 GROSS AND MICRO LEVEL 5 Comments: [id number]
[2022-10-28] MEDS: ELECTROLYTE-R SOLUTION 1,000 ML 30 ML IV (09:10)
[2022-10-28] MEDS: miSOPROStol 50 MCG TAB (10:02)
[2022-10-28] MEDS: Ondansetron 4 MG/2 ML VIAL IVP (10:43)
[2022-10-28] MEDS: Oxytocin/Normal Saline 30 UNIT/500 ML BAG 97 UNITS IV (10:45)
[2022-10-28] MEDS: Levalbuterol 1.25 MG/3 ML UPD VIAL UPD (11:10)
--- NOTE | 2022-10-28 11:30 | OBCE_ITS ---
Date of service: 10/28/22 Time of Service: 11:31 Assessment and Plan Assessment and plan (1) hemorrhage: Status: Acute Assessment and plan: I was called to evaluate the patient in the relatively early period after having a vaginal delivery complicated by shoulder dystocia, cord avulsion, manual removal of placenta and hemorrhage. In light of the clinical picture and relative hemodynamic instability, she was taken the operating room for exam under anesthesia, uterine curettage. Risk benefits and alternatives of surgical exploration by exam under anesthesia with dilation and curettage, possible laparotomy possible hysterectomy were all explained and informed consent had been obtained. History of Present Illness History of Present Illness Chief Complaint: hemorrhage Narrative: I was called to the bedside of the patient shortly after the patient had a vaginal delivery. She is a 27-year-old female well-known to our service who has had complicated by gestational diabetes that is insulin requiring. She presented yesterday for labor induction at term. She had a known history of previous retained placenta. Upon presentation to the floor, I was simultaneously paged due to the fact that the patient had a vaginal delivery complicated by a shoulder dystocia that was approximately 3 minutes to resolution. Manual removal of the placenta was warranted per the medical technician assistant and there was a moderate amount of bleeding. Upon my presentation to the room the patient had had approximately 1200 cc of bleeding. She was noted to be tachycardic with a pulse in the 130s with a slightly decreased blood pressure of 70s over 40s. By this time, she had received Pitocin, manual sweep of the uterus for moderate clot return. She had also received 400 mcg of oral misoprostol and 1 dose of Methergine. At this point she had a persistent amount of bleeding, with a concern at the lower uterine segment. On inspection of the placenta placenta appeared somewhat ragged consistent with manual removal of her placenta. In light of these facts with significant hemorrhage, uteroitonics, placental examination, and vital signs the decision was made for her to have surgical exploration. Risk benefits and alternatives of dilation and curettage, possible exploratory laparotomy, possible hysterectomy were explained to the patient. She understands the risk of infection, bleeding, injury to surrounding organs and full informed consent was obtained. In the process of preparing for her surgical exploration it was noted that the OR crew was currently in a surgical procedure as well as anesthesia. A second or crew and second forest ecology professor was called. In the intervening time, a Razia device was placed into the uterine cavity for ongoing assessment of her bleeding situation, and removal of clot if present. Consults Consult date: 10/28/22 Requesting physician: July Bedoya Review of Systems Narrative: At the time of my initial presentation to the labor suite patient was awake, alert, oriented, however complaining of feeling tired and thirsty, somewhat pale, with tachycardia and hypotension. Cardiovascular Comments: Denied chest pain Respiratory Comments: Denies shortness of breath PFSH All Active Problems (Updated 10/28/22 @ 11:39 by Deanna Smith DO) hemorrhage (Acute) Depression (Chronic) Gestational diabetes (Acute) Rubella non-immune status, antepartum (Acute) Positive urine drug screen (Acute) thc + 29 weeks Elevated glucose (Acute) BMI 40.0-44.9, adult (Acute) (Acute) Late care (Acute) (Acute) Asthma (Chronic) uses inhaler Medical History ASCUS with positive high risk HPV cervical (06/15/14) History of abnormal cervical Pap smear Normal 2018 and 2021 History of retained placenta manual removal, 2021 no blood transfusion No significant past medical history Surgical History No significant past surgical history Family History Father Diabetes Maternal Grandmother Diabetes Maternal Grandfather Diabetes Self Depression sees pychiatrist Mili Vergara Mother Asthma Other Stroke Social History Smoking/Tobacco Use Status: Current every day Tobacco Type: cigarettes Smoking risk assessment performed?: Yes Alcohol Intake: current Alcohol Intake frequency: a few times a week Alcohol type: beer, wine and hard liquor Drug use: Never Substance use type: does not use Do you feel safe at home: Yes Do you feel safe in your relationship?: Yes History History 4 Para 3 Hx # Term Pregnancies 3 Multiple births Hx # Pregnancies Ectopic pregnancies AB induced Hx Number of Living Children AB spontaneous Past Pregnancies Del. Date GA/Weeks # Preg Succ Route Wgt Sex Labor Lgth Anesth esia Location [facility] 01/17/11 41 No Yes vaginal 6 lb 2 oz Female 12 [facility] 03/20/15 40 No Yes vaginal 7 lb 8 oz Male 12 [facility] [place] 11/30/21 39 No Yes vaginal 6 lb 3 oz [place] Delivery Date: 01/17/11 Last Updated by: July Bedoya CNM [place] Delivery Date: 03/20/15 Last Updated by: July Bedoya CNM [place] Delivery Date: 11/30/21 Last Updated by: July Bedoya CNM retained placenta with manual removal, Rapid delivey, [place] Exam Narrative Exam Narrative: At the time of presentation, patient was pallorous, though alert and oriented. Tachycardic with hypotension. Const General: cooperative, well developed, acute distress, not diaphoretic and ill appearing Orientation: alert, awake and oriented x3 Resp Effort & Inspection: normal respiratory effort, no audible wheezes and no cough Cardio Rate: tachycardic GI Palpation: soft, not firm and no guarding OB/External & Speculum: bleeding Other: At the time my initial presentation uterus was firm at the fundus, though 2 to 3 cm above the umbilicus with moderate bright red bleeding. During attempts to control bleeding, initial attempt at placement of the date of her medical technician assistant was unsuccessful. On palpation, by me the J-tube was slid easily through the cervical opening and deployed. Balloon inflated with normal saline to 80 ml and placed on suction. Minimal blood return noted from the jaded device. Skin General skin exam: no rashes or lesions noted and pallor Neuro General: patient alert, patient awake and patient oriented x3 Results Last Vital Signs Temp 97.9 F 10/28/22 10:24 Pulse 95 H 10/28/22 10:24 Resp 19 10/28/22 10:24 BP 144/61 H 10/28/22 10:24 Pulse Ox 97 10/28/22 11:10 Labs Labs: Laboratory Results - last 24 hr 10/27/22 10/28/22 21:07 04:00 COVID-19 Source Nasal/Nares SARS-CoV-2 (PCR) Negative Patient ABO/Rh O Positive Antibody Screen NEGATIVE Crossmatch See Detail
--- NOTE | 2022-10-28 11:40 | W.PM.OP ---
Date of service: 10/28/22 Time of Service: 11:40 Operative Note Operative Note DATE OF PROCEDURE: 10/28/22 PRE-OP DIAGNOSIS: hemorrhage POST-OP DIAGNOSIS: same Status post vaginal delivery with shoulder dystocia PROCEDURE: Exam under anesthesia, uterine curettage SURGEON: Deanna Smith ANESTHESIA TYPE: General LMA/ETT Refer to Anesthesia Record ESTIMATED BLOOD LOSS: 100 PATHOLOGY: other (Uterine contents) COMPLICATIONS: None Patient was transported to: PACU Patient's condition: stable Findings: hemorrhage in the immediate period Procedure Description: Patient is a 27-year-old female who had recently had a vaginal delivery complicated by shoulder dystocia after labor induction at term due to insulin requiring gestational diabetes. She had a post hemorrhage with a total of 2 L. As of note, she also had a manual removal of her placenta with cord avulsion. After full informed consent of had been obtained, jaded device had been inserted into the uterine cavity, Webber catheter inserted, she was taken the operating room for exam under anesthesia, and uterine curettage. Upon presentation to the OR she was placed in the dorsal supine position, Webber catheter had been previously inserted, pneumatic compression stockings placed, general anesthesia administered via endotracheal intubation with ease. She was then placed in the modified dorsal lithotomy position and prepped and draped in the usual sterile fashion. Timeout was performed to confirm the previously mentioned procedure. At this point, exam under anesthesia revealed a cervical os that was open with a lower uterine segment that was somewhat atonic. Patient received ongoing Pitocin, and a dose of TXA. In light of her significant blood loss, she also had been typed and crossed and received 2 units of packed red blood cells. Weighted speculum was placed then into the posterior vaginal vault and a ring forcep used to grasp the anterior lip of the cervix. Manual exploration of the uterus followed by sharp curettage was performed until the coarse cry of the uterus could be felt in all 4 quadrants of the uterine cavity. In general the uterus was firm, though somewhat bulky. There was scant tissue return, however there was impression of retained fragments of placenta. Uterus remained firm. She did receive an additional 400 mcg of misoprostol rectally along with her Pitocin for uterine tonicity. With a systematic inspection, the uterine fundus was firm, lower segment was firm. Visualization of the entirety of the cervical os 3 failed to reveal any lesions. There were no vaginal lacerations. There is no evidence of pelvic hematoma. The perineum was intact. Uterus was firm and at the umbilicus to approximately 1 cm above at the completion of her procedure. There was no evidence of ongoing bleeding, and appropriate uterine tonicity achieved. Patient was taken to the postanesthesia care unit for recovery in stable condition. She was taken to the center there after for the remainder of her recovery. Debriefing was held with the center team, and family post procedure. Fluids: Crystalloid per anesthesia, 2 units packed red blood cells Complications: None apparent Pathology: Uterine contents EBL intraoperatively: 100 mL. As of note, patient had a 2 L blood loss prior to coming to the OR.
--- NOTE | 2022-10-28 12:05 | W.PM.OBNL1 ---
Date of service: 10/28/22 Time of Service: 06:30 Pelvic Exam Dilation: 9 Effacement (%): 100 station: +1 Position: CARL Cervix Position: anterior Consistency: soft Contractions Monitor Mode: External Contraction Frequency(min): every 3 Contraction Duration(sec): 60 Intensity: Strong Fetus A Monitor: External (US) Heart Rate Baseline: 150 Variability: Moderate (6-25 BPM) Categories: Category I Accelerations: 15 X 15 Decelerations: None Assessment and Plan Assessment and plan (1) Encounter for induction of labor: Status: Resolved Assessment and plan: Anticipate imminent . (2) Gestational diabetes: Status: Acute Assessment and plan: Most recent blood sugar is 99 Objective Abnormal lab results 10/27/22 Range/Units 21:07 Crossmatch See Detail Temp Pulse Resp BP Pulse Ox 97.9 F 95 H 19 144/61 H 97 10/28/22 10:24 10/28/22 10:24 10/28/22 10:24 10/28/22 10:24 10/28/22 11:10 Laboratory Results COVID-19 Source Nasal/Nares 10/28/22 04:00 SARS-CoV-2 (PCR) Negative (Negative) 10/28/22 04:00 Patient ABO/Rh O Positive 10/27/22 21:07 Antibody Screen NEGATIVE 10/27/22 21:07 Crossmatch See Detail 10/27/22 21:07 Subjective Interval history since last seen: Pitocin was ordered at 0445 and is now infusing at 2 mu/min. Hailee is complaining of pressure. Straight cathed for 75 cc concentrated urine. Results Abnormal Lab Findings: Abnormal Labs 10/27/22 21:07 Crossmatch See Detail
--- NOTE | 2022-10-28 12:10 | W.OBDELIVERY ---
Date of service: 10/28/22 Time of Service: 11:00 OB Labor/ Delivery Information Baby A Delivery Delivery Method: Spontaneaous Presentation: Vertex Cephalic Position: Vertex Vertex Position: Left Occipital Anterior Cord Description Comment: cord was tied in a knot around the baby's ankle. Amniotic Fluid: Clear Estimated Blood Loss: 1800 Delivery Outcome: Liveborn Complications: shoulder dystocia with resuscitation Infant Transferred: Remains with Mother (on warmer with ongoing observation. ) Note: Hailee had a strong urge to push. An anterior rim of cervix was reduced easily and she began bearing down well with contractions. FHTs were 140-150 during first stage of labor. FHTs 150s in second stage. Hailee began pushing well. Second stage huddle was done and risks of shoulder dystocia and post hemorrhage were identified due to previous retained placenta with her 3rd delivery and estimated weight of 8.5 lbs. There was spontaneous delivery of female infant's head delivered in CARL position. Turtle sign was identified. Hailee was encouraged to continue pushing as gentle downward traction on the anterior shoulder was performed. A shoulder dystocia was identified. A third nurse was called to the delivery room and notified of the shoulder dystocia. The supervisor fiber locking was called and instructed to page the combination technician pediatric provider, Dr. Sifuentes. I then attempted to deliver the posterior shoulder but due to limited space, I was unable to access the psoterior shoulder. Hailee was assisted to move to her hands and knees which allowed access for my hand to deliver the posterior shoulder followed by the anterior shoulder. The baby was dried and stimulated. A tight loop of cord was wrapped around the baby's ankle and the cord was noted to be short. The baby was noted to have decreased tone and respiratory effort and the cord was clamped and cut and the baby was transferred immediately to the warm for assessment. Pitocin 30 units was administered rapidly before delivery of the placenta. There was some bright bleeding and an attempt was made to deliver the placenta. Misoprostol 400 mcg PO was adminstered prior to placenta delivery. The cord broke approximately 3 inches from the placenta during attempt to deliver the placenta. The edge of the placenta was identified at the cervical os and it was delivered manually with maternal pushing efforts. It was examined and the body of the placenta appears to by intact with a three vessel cord. Some ragged areas of the placenta were noticed suggesting the possibility of retained fragments. The fundus was firm with massage but the lower uterine segment remained boggy. Heavy bright bleeding continued and methergine 0.2 mg IM was given. Clots were extracted and weighed. Dr. Smith was paged and was present on the unit and came in to the delivery room and she also examined the placenta. QBL was 1200 cc of clots and weights of blood on the chux under her. A decision was made by Dr. Smith to proceed with D and C for suspected retained placental fragments. As the OR was not readily available, a Vilma was placed. I removed clots from the lower uterine segment and attempted to place the Vilma device. I was unable to get all of the vilma into the upper portion of the uterus so Dr Smith placed the Vilma and it was attached to suction at 100 mm. There was a small amount of blood noted at that time in the suction tubing. The blood and amniotic fluid was assessed in the underbuttocks drape which had been removed and it was estimated at 300 cc with the amniotic fluid in the bag for a total estimated blood loss in the first 30 minutes after delivery of 1842cc. The perineum was inspected and appears to be intact. Hailee was transferred to the OR for a D and C. Providers Nurse Reconditioner: July Bedoya Nurse: Aubrey Sneed Nurse: Ilene Baires Labor/Delivery Information Number of Babies in Womb: 1 Steroids Given: None Reason Steroids Not Administered: N/A Group Beta Strep: Negative Antibiotics Administered: No Rubella Status: Nonimmune Blood Type: O+ Varicella Immunity: Immune Medication in Delivery: meso, methergyn Maternal Complications: Hemorrhage Shoulder Dystocia: Yes Stages of Labor Onset of Labor Date: 10/27/22 Onset of Labor Time: 10:50 Complete Dilatation Date: 10/28/22 Complete Dilatation Time: 07:00 Labor - Stage 1 Duration: 20 hours and 10 minutes ROM Baby A: 10/28/22 ROM Baby A: 04:15 ROM Total Time- Baby A: [id number] Delivery Date-Baby A: 10/28/22 Infant Delivery Time-Baby A: 07:32 Labor Stage 2 Duration: 32 minutes Placenta Delivery Date-Baby A: 10/28/22 Placenta Delivery Time-Baby A: 07:47 Labor-Stage 3 Duration: 15 minutes Total Length of Labor-Baby A: 20 hours and 42 minutes Placenta Cultured: Yes Placenta Status: Retained Baby A Infant Gender: Female Gestational Status: Term (39-41.6 wks) Gestational Age in Weeks/Days: 39 Weeks and 3 Days weight: 8 lb 1.279 oz Length-Baby A: 18.5 in Head Circumference-Baby A: 13.5 in Score-1 Minute Interval(Baby A) Heart Rate-1 minute: Below 100 BPM Respiratory Effort- 1 minute: No Spontaneous Effort Muscle Tone-1 minute: Minimal Flexion/Extension Reflex Response-1 minute: Minimal Response Color-1 minute: Pallor or Cyanosis Total Score-1 minute: 3 Score-5 Minute Interval(Baby A) Heart Rate- 5 minute: 100 BPM or Greater Respiratory Effort-5 minute: Spontaneous/Strong Cry Muscle Tone-5 minute: Active Movement Reflex Response-5 minute: Minimal Response Color-5 minute: [place]/No Cyanosis Total Score- 5 minute: 9 Shoulder Dystocia Delivery Times Date of Delivery of Head: 10/28/22 Time of Delivery of the Head: 07:29 Head to Body Delivery Interval(minutes): 3 minutes Verify No Fundal Pressure Applied Fundal Pressure: No Pressure Applied Arm Under Sympisis Arm Under Symphisis: Right Interventions 1st Intervention: Date: 10/28/22 Time: 07:29 SD Intervention: McRobert's Maneuver Note: with gentle downward traction. 2nd Intervention: Date: 10/28/22 Time: 07:30 SD Intervention: Suprapubic Pressure Note: combined with Houston maneuver and attempt to access the posterior shoulder and arm 3rd Intervention: Date: 10/28/22 Time: 07:31 SD Intervention: Posterior Arm Release Note: unsuccessful due to lack of space for accessing 4th Intervention: Date: 10/28/22 Time: 07:32 SD Intervention: Estrella's Maneuver Note: Attempt was made to deliver the posterior arm which was unsuccessful due to the arm being at the baby's side, the posterior shoulder was delivered with out difficulty followed by the anterior shoulder, resulting in delivery of the baby. Hemorrrhage Note Note Note: see Delivery note. 3 RNs in the room at delivery due to shoulder dystocia. Hemorrhage Recognized Date Hemorrhage Recognized: 10/28/22 Time Hemorrhage Recognized: 07:40 Call for Help Date: 10/28/22 Time: 07:30 2nd RN in Room Date: 10/28/22 Time: 07:30 2nd RN: Dawit Lock Provider in Room Date: 10/28/22 Time: 08:00 Provider: Deanna Smith [place] Uterine Compression Date: 10/28/22 Time: 07:48 RN Supervisor Soakers Notified Date: 10/28/22 Time: 07:32 RN Supervisor Soakers on Floor Date: 10/28/22 Time: 08:30 Supervisor Soakers: Nisa Arriola QBL Scale in Room Date: 10/28/22 Time: 07:50 OB Emergency Cart at Bedside Date: 10/28/22 Time: 07:50 IV Site Left Wrist: Date: 10/28/22 Time: 01:00 IV Catheter Gauge: 20 Right Hand: Date: 10/28/22 Time: 08:50 IV Catheter Gauge: 18 Webber Catheter Urinary Catheter Date of Insertion: 10/28/22 Time of insertion: 08:00 Urinary Catheter Size: 16 Inserted by: Elke Medication Administration 1st Administration: Medication: Oxytocin 30U/500 ml IV Medication Other/Dose/Route: cytotec Administration Date: 10/28/22 Administration Time: 07:40 Blood Started Date: 10/28/22 Time: 09:30 Second Provider in Room Date: 10/28/22 Time: 08:01 Provider: Deanna Smith Total Blood Loss for PPH Event Quantitative Blood Loss: 1,842 Transported to OR Date: 10/28/22 Time: 09:10
--- NOTE | 2022-10-28 12:13 | W.ANESPOSTOP ---
Postoperative Evaluation Date, Time and Location Date Performed: 10/28/22 Time Performed: 12:13 Patient Location: Obstetrics Vital Signs Most Recent Imported Vital Signs: Most Recent Vital Signs Temp Pulse Resp BP Pulse Ox 36.6 C 95 H 19 144/61 H 97 10/28/22 10:24 10/28/22 10:24 10/28/22 10:24 10/28/22 10:24 10/28/22 11:10 Pain Score Most Recent Pain Score: Most Recent Pain Score Pain Level [Abdomen] 5 10/27/22 20:44 Pain Level 8 10/28/22 03:21 Assessment Mental Status: Awake (Alert & Oriented to Patient Baseline) Airway and Respiratory Function: Patent airway with normal (patient baseline) respiratory exam Cardiovascular Function: Hemodynamically Stable Hydration Status: Adequately Hydrated Nausea & Vomiting: No Nausea or Vomiting Pain: Pain is tolerable per patient Peripheral Nerve Block: Patient did not receive a nerve block Postoperative Comments:: Discussed her severe bronchospasm in the OR and that she should follow up with her PCP in regards to her lungs.
[2022-10-28] MEDS: Ibuprofen 600 MG TAB PO ×2 (12:31→21:42)
[2022-10-28] MEDS: Acetaminophen 325 MG TAB 650 MG PO ×2 (12:31→21:42)
--- NOTE | 2022-10-28 13:33 | OBPPV_ITS ---
Date of service: 10/28/22 Time of Service: 13:33 Assessment and Plan Assessment and plan (1) Vaginal delivery: Status: Acute Assessment and plan: Patient had labor induction due to term, gestational diabetes, insulin requiring. She reserves cervical ripening, epidural for pain control, artificial rupture of membranes, Pitocin augmentation. At the time of her delivery she had a shoulder dystocia, placental avulsion, manual extraction of her placenta, hemorrhage, and what appears to be retained scant placental fragments. (2) Shoulder dystocia, delivered, current hospitalization: Status: Acute Assessment and plan: 3-minute dystocia per education liaison (3) hemorrhage: Status: Acute Assessment and plan: QBL of 2000 cc. Patient received Pitocin, Methergine, misoprostol, manual uterine exploration, placement of a jaded device, surgical exploration with exam under anesthesia and uterine curettage, TXA. She received 2 units of packed red blood cells intraoperatively for her 2 L blood loss. (4) Gestational diabetes: Status: Acute Assessment and plan: Stable blood pressures and blood sugars during her labor induction. We will check fasting blood glucose in the morning. If blood glucose is stable, would recommend 2-hour glucose screening at her 6-week checkup. Subjective Subjective Interval history: Patient is seen and examined at this point in the relatively immediate postoperative period. She is doing well. Her pain is well controlled. She is experiencing some uterine crampiness. She has no chest pain or shortness of b reath. She states that overall she is feeling somewhat better. She denies lightheadedness, or dizziness. Vital signs are reviewed. She remains to have some tachycardia. Blood pressure is stable. Urine output is adequate. baby status: Rooming in and Strong Bonding Observed Exam Physical Exam Vital signs: Temp Pulse Resp BP Pulse Ox 98.1 F 116 H 20 124/67 95 10/28/22 11:30 10/28/22 12:30 10/28/22 10:45 10/28/22 12:30 10/28/22 12:30 Notable Details: Still with some mild tachycardia. Stable blood pressure. Appropriate puls Constitutional Constitutional: no acute distress and obese HEENT Exam HEENT Exam: Normal Neck Exam Neck Exam: Normal Detailed Respiratory Exam Respiratory: Present wheezes (Bilateral bases); Absent accessory muscle use or decreased breath sounds Cardiovascular Exam Cardiovascular Exam: Normal Abdominal Exam Abdomen: Tender Fundal Exam Fundus: Firm Comment: 1 cm above the umbilicus, stable from delivery and surgery. Extremities Exam Extremity Exam: Normal and Other (Pneumatic compression stockings in place); negative Calf Tenderness Psychiatric Exam Psychiatric Exam: Normal Results Abnormal Lab Findings: Abnormal Labs 10/27/22 21:07 Crossmatch See Detail Hemorrrhage Note Hemorrhage Recognized Date Hemorrhage Recognized: 10/28/22 Time Hemorrhage Recognized: 07:40 Call for Help Date: 10/28/22 Time: 07:30 2nd RN in Room Date: 10/28/22 Time: 07:30 2nd RN: Dawit Lock Provider in Room Date: 10/28/22 Time: 07:50 Provider: Deanna Smith Bimanual Uterine Compression Date: 10/28/22 Time: 07:48 RN Desulfurizer Operator Notified Date: 10/28/22 Time: 08:30 RN Desulfurizer Operator on Floor Date: 10/28/22 Time: 07:45 Desulfurizer Operator: Nisa Arriola QBL Scale in Room Date: 10/28/22 Time: 07:50 OB Emergency Cart at Bedside Date: 10/28/22 Time: 07:50 Webber Catheter Urinary Catheter Date of Insertion: 10/28/22 Time of insertion: 07:55 Urinary Catheter Size: 16 Inserted by: Elke Blood Started Date: 10/28/22 Time: 09:30 Second Provider in Room Date: 10/28/22 Time: 08:01 Provider: Deanna Smith Total Blood Loss for PPH Event Quantitative Blood Loss: 1,800 Transported to OR Date: 10/28/22 Time: 09:10
[2022-10-28 14:09] LABS: HCT 32.3 % (36.0-46.0); HGB 10.7 g/dL (11.2-15.7); MCH 28.1 pg (27.0-33.0); MCHC 33.1 % (32.0-36.0); MCV 85 fL (80-95); MPV 11.5 fL (8.0-11.0); Platelet Count 143 10^3/uL (130-400); RBC 3.81 10^6/uL (3.93-5.22); RDW 15.7 % (11.7-14.6); RDW-SD 48.3 fL; WBC 24.35 10^3/uL (4.4-10.8)
[2022-10-28] MEDS: miSOPROStol 200 MCG TAB 600 MCG PO ×2 (14:10→22:45)
[2022-10-28] MEDS: Lactated Ringers 500 ML 1000 ML IV (15:01)
[2022-10-29] MEDS: Acetaminophen 325 MG TAB 650 MG PO ×3 (02:28→18:10)
[2022-10-29] MEDS: Levalbuterol 1.25 MG/3 ML UPD VIAL UPD (03:04)
[2022-10-29 03:29] VITALS: BP 116/70; PULSE 78; RESP 16; TEMP 36.6; O2SAT 98
[2022-10-29 06:46] LABS: Abs Immature Grans 0.08 10^3/uL (0.0-0.06); Absolute Basophil Count 0.05 10^3/uL (0.0-0.2); Absolute Eosinophil Count 0.03 10^3/uL (0.0-0.7); Absolute Lymphocyte Count 1.62 10^3/uL (1.2-3.4); Absolute Monocyte Count 1.03 10^3/uL (0.1-0.8); Absolute Neutrophil Count 10.12 10^3/uL (1.2-6.7); Basophils % 0.4; Eosinophils % 0.2; HGB 8.6 g/dL (11.2-15.7); Immature Grans % 0.6; Lymphocytes % 12.5; MCH 28.3 pg (27.0-33.0); MCHC 33.1 % (32.0-36.0); MCV 86 fL (80-95); MPV 12.2 fL (8.0-11.0); Neutrophils % 78.3; Platelet Count 113 10^3/uL (130-400); RBC 3.04 10^6/uL (3.93-5.22); RDW 16.5 % (11.7-14.6); RDW-SD 51.3 fL; WBC 12.93 10^3/uL (4.4-10.8)
[2022-10-29] MEDS: Ibuprofen 600 MG TAB PO ×2 (07:51→18:10)
[2022-10-29 08:00] VITALS: BP 106/70; PULSE 79; RESP 18; TEMP 36.3; O2SAT 97
--- NOTE | 2022-10-29 08:47 | W.PM.OBPNV1 ---
Date of service: 10/29/22 Time of Service: 08:47 Assessment and Plan Assessment and plan (1) Shoulder dystocia, delivered, current hospitalization: Status: Acute (2) hemorrhage: Status: Acute (3) Vaginal delivery: Status: Acute Assessment and plan: Patient is day #1 status post vaginal delivery complicated by 3-minute shoulder dystocia, and hemorrhage requiring uterotonic medication, OR for uterine curettage, 2 units packed red blood cells. Patient is stable this morning. We will discontinue her Webber catheter and her IV. Her course was complicated by insulin requiring gestational diabetes. We will check a fasting glucose today. As of note, the patient and her family are currently in temporary housing. We will connect for social work therapist. Ambulate. Shower. Subjective Subjective Interval history: Patient seen and examined this morning. Doing much better than yesterday. Hemoglobin is stable at 8.6. Vital signs are stable. Urine output is adequate. This morning we will discontinue her Webber catheter and remove her IV. Patient may shower. Risk for delayed hemorrhage Patient's Mood: good [place] baby status: Nursing well and Strong Bonding Observed Exam Physical Exam Vital signs: Temp Pulse Resp BP Pulse Ox 97.3 F L 79 18 106/70 97 10/29/22 08:00 10/29/22 08:00 10/29/22 08:00 10/29/22 08:00 10/29/22 08:00 Vital Signs Reviewed: Yes Constitutional Constitutional: no acute distress HEENT Exam HEENT Exam: Normal Neck Exam Neck Exam: Normal Respiratory Exam Respiratory Exam: Normal Cardiovascular Exam Cardiovascular Exam: Normal Abdominal Exam Abdomen: Tender Fundal Exam Fundus: Below Umbilicus and Firm Extremities Exam Extremity Exam: Normal and Edema (1+); negative Calf Tenderness Skin Exam Skin Exam: Normal Neurological Exam Neurological Exam: Normal Psychiatric Exam Psychiatric Exam: Normal Results Hemoglobin/Hematocrit: Hgb 8.6 g/dL (11.2-15.7) L D 10/29/22 06:02 Hct 26.0 % (36.0-46.0) L 10/29/22 06:02 Abnormal Lab Findings: Abnormal Labs 10/27/22 10/28/22 10/29/22 21:07 14:02 06:02 WBC 24.35 H 12.93 H RBC 3.81 L 3.04 L Hgb 10.7 L 8.6 L D Hct 32.3 L 26.0 L RDW 15.7 H 16.5 H Plt Count 113 L MPV 11.5 H 12.2 H Absolute Neutrophils 10.12 H Absolute Monocytes 1.03 H Crossmatch See Detail Hemorrrhage Note Hemorrhage Recognized Date Hemorrhage Recognized: 10/28/22 Time Hemorrhage Recognized: 07:40 Call for Help Date: 10/28/22 Time: 07:30 2nd RN in Room Date: 10/28/22 Time: 07:30 2nd RN: Dawit Lock Provider in Room Date: 10/28/22 Time: 08:00 Provider: Deanna Smith Bimanual Uterine Compression Date: 10/28/22 Time: 07:48 RN Artificial Limb Fitter Notified Date: 10/28/22 Time: 07:32 RN Artificial Limb Fitter on Floor Date: 10/28/22 Time: 08:30 Artificial Limb Fitter: Nisa Arriola QBL Scale in Room Date: 10/28/22 Time: 07:50 OB Emergency Cart at Bedside Date: 10/28/22 Time: 07:50 Webber Catheter Urinary Catheter Date of Insertion: 10/28/22 Time of insertion: 08:00 Urinary Catheter Size: 16 Inserted by: Elke Blood Started Date: 10/28/22 Time: 09:30 Second Provider in Room Date: 10/28/22 Time: 08:01 Provider: Deanna Smith Total Blood Loss for PPH Event Quantitative Blood Loss: 1,842 Transported to OR Date: 10/28/22 Time: 09:10
--- NOTE | 2022-10-29 11:22 | W.PM.OBPNV1 ---
Date of service: 10/29/22 Time of Service: 11:24 Assessment and Plan Assessment and plan (1) Vaginal delivery: Status: Acute Assessment and plan: without difficulty. Discharge planned for tomorrow with follow up at [facility] with KATE or MD. Tubal ligation planned at 6 weeks post and permit was signed with Dr Smith (2) Shoulder dystocia, delivered, current hospitalization: Status: Acute Assessment and plan: Discussed events of yesterday and opportunity provided for Hailee and her partner, Neeraj to ask questions and they stated that they don't have any questions and that they feel that everything has been explained well to them. Subjective Subjective Patient comments: No complaints and Pain well controlled Patient's Mood: She reports that she feels well emotionally [place] baby status: Nursing well [place] feeding status: Exclusively breast feeding Narrative: S/P induction of labor for insulin controlled gestational diabetes. Epidural analgesia. Spontaneous vaginal delivery with shoulder dystocia and post hemorrhage requiring D and C with removal of tissue sent to pathology for examination. Intact perineum. Transfusion with 2 units intraoperatively. Hgb and HCT this morning is 8.[address] Smith saw Hailee this morning. She is stitting up in a chair this morning and has showered. The baby has been evaluated by Dr. Sifuentes and is exhibiting decreased motion in right arm with good hand movement and vet assistant. Rubella is non immune and vaccine will be offered prior to discharge. Exam Physical Exam Vital signs: Temp Pulse Resp BP Pulse Ox 97.3 F L 79 18 106/70 97 10/29/22 08:00 10/29/22 08:00 10/29/22 08:00 10/29/22 08:00 10/29/22 08:00 Constitutional Constitutional: no acute distress Comments: Reports mild cramping. Additional findings Additional findings: Exam deferred to Dr Smith who assessed Hailee this morning. Results Hemoglobin/Hematocrit: Hgb 8.6 g/dL (11.2-15.7) L D 10/29/22 06:02 Hct 26.0 % (36.0-46.0) L 10/29/22 06:02 Abnormal Lab Findings: Abnormal Labs 10/27/22 10/28/22 10/29/22 21:07 14:02 06:02 WBC 24.35 H 12.93 H RBC 3.81 L 3.04 L Hgb 10.7 L 8.6 L D Hct 32.3 L 26.0 L RDW 15.7 H 16.5 H Plt Count 113 L MPV 11.5 H 12.2 H Absolute Neutrophils 10.12 H Absolute Monocytes 1.03 H Crossmatch See Detail Hemorrrhage Note Hemorrhage Recognized Date Hemorrhage Recognized: 10/28/22 Time Hemorrhage Recognized: 07:40 Call for Help Date: 10/28/22 Time: 07:30 2nd RN in Room Date: 10/28/22 Time: 07:30 2nd RN: Dawit Lock Provider in Room Date: 10/28/22 Time: 08:00 Provider: Deanna Smith Bimanual Uterine Compression Date: 10/28/22 Time: 07:48 RN Upholsterer Assembly Line Notified Date: 10/28/22 Time: 07:32 RN Upholsterer Assembly Line on Floor Date: 10/28/22 Time: 08:30 Upholsterer Assembly Line: Nisa MendenhallBL Scale in Room Date: 10/28/22 Time: 07:50 OB Emergency Cart at Bedside Date: 10/28/22 Time: 07:50 Webber Catheter Urinary Catheter Date of Insertion: 10/28/22 Time of insertion: 08:00 Urinary Catheter Size: 16 Inserted by: Elke Blood Started Date: 10/28/22 Time: 09:30 Second Provider in Room Date: 10/28/22 Time: 08:01 Provider: Deanna Smith Total Blood Loss for PPH Event Quantitative Blood Loss: 1,842 Transported to OR Date: 10/28/22 Time: 09:10
[2022-10-29 16:00] VITALS: BP 102/49; PULSE 74; TEMP 36.4; O2SAT 98
[2022-10-29] MEDS: Hydrocortisone 1% CR 30 GM TUBE TP ×2 (16:07→20:43)
[2022-10-29] MEDS: Docusate Sodium 100 MG CAP PO (18:10)
[2022-10-29 20:11] VITALS: BP 115/54; PULSE 82; RESP 16; TEMP 36.7; O2SAT 98
[2022-10-29] MEDS: diphenhydrAMINE 25 MG CAP PO (23:12)
[2022-10-30] MEDS: Ibuprofen 600 MG TAB PO ×2 (00:26→09:51)
[2022-10-30] MEDS: Acetaminophen 325 MG TAB 650 MG PO ×2 (00:26→09:51)
[2022-10-30] MEDS: Hydrocortisone 1% CR 30 GM TUBE TP (05:44)
[2022-10-30] MEDS: diphenhydrAMINE 25 MG CAP PO (05:49)
[2022-10-30 07:35] VITALS: BP 113/72; PULSE 80; RESP 18; TEMP 36.8; O2SAT 99
[2022-10-30] MEDS: Docusate Sodium 100 MG CAP PO (07:41)
--- NOTE | 2022-10-30 09:17 | W.PM.OBPNV1 ---
Date of service: 10/30/22 Time of Service: 09:17 Assessment and Plan Assessment and plan (1) Vaginal delivery: Status: Acute Assessment and plan: Patient is now day #2 status post vaginal delivery with significant shoulder dystocia. She subsequently had a hemorrhage after retained placenta with cord avulsion. She went to the operating room for exam under anesthesia and uterine curettage. She did receive 2 units packed red blood cells intraoperatively. Postoperatively, she did well and had stable vital signs, and good uterine tonicity. She had received antibiotics for prophylaxis intraoperatively as well. We will continue to watch her. She will be discharged home today. She will be seen back in the office in 1 week's time. She will have a Depo-Provera shot prior to her discharge and we would anticipate tubal sterilization after 6 weeks. (2) hemorrhage: Status: Acute (3) Shoulder dystocia, delivered, current hospitalization: Status: Acute (4) Housing insecurity: Status: Acute Assessment and plan: Supportive services have been engaged (5) Rubella non-immune status, antepartum: Status: Acute Assessment and plan: Will delay rubella vaccination until 6-week due to her current urticaria (6) Gestational diabetes: Status: Acute Assessment and plan: Will need 2-hour glucose tolerance test at her 6-week visit. Subjective Subjective Interval history: Patient seen and examined this morning. Doing well. Desires discharge home. She did develop hives over the evening last night. They are somewhat improved with oral Benadryl. Patient's Mood: Good [place] feeding status: Exclusively breast feeding Exam Physical Exam Vital signs: Temp Pulse Resp BP Pulse Ox 98.2 F 80 18 113/72 99 10/30/22 07:35 10/30/22 07:35 10/30/22 07:35 10/30/22 07:35 10/30/22 07:35 Vital Signs Reviewed: Yes Constitutional Constitutional: no acute distress and obese HEENT Exam HEENT Exam: Normal Neck Exam Neck Exam: Normal Respiratory Exam Respiratory Exam: Normal Cardiovascular Exam Cardiovascular Exam: Normal Abdominal Exam Abdomen: Tender Fundal Exam Fundus: Below Umbilicus and Firm Extremities Exam Extremity Exam: Normal and Edema (2+, bilateral); negative Redness Skin Exam Skin Exam: Abnormal (Urticaria, diffuse.) Results Hemoglobin/Hematocrit: Hgb 8.6 g/dL (11.2-15.7) L D 10/29/22 06:02 Hct 26.0 % (36.0-46.0) L 10/29/22 06:02 Abnormal Lab Findings: Abnormal Labs 10/27/22 10/28/22 10/29/22 21:07 14:02 06:02 WBC 24.35 H 12.93 H RBC 3.81 L 3.04 L Hgb 10.7 L 8.6 L D Hct 32.3 L 26.0 L RDW 15.7 H 16.5 H Plt Count 113 L MPV 11.5 H 12.2 H Absolute Neutrophils 10.12 H Absolute Monocytes 1.03 H Crossmatch See Detail Hemorrrhage Note Hemorrhage Recognized Date Hemorrhage Recognized: 10/28/22 Time Hemorrhage Recognized: 07:40 Call for Help Date: 10/28/22 Time: 07:30 2nd RN in Room Date: 10/28/22 Time: 07:30 2nd RN: Dawit Lock Provider in Room Date: 10/28/22 Time: 08:00 Provider: Deanna Smith Bimanual Uterine Compression Date: 10/28/22 Time: 07:48 RN Premium Note Interest Calculator Clerk Notified Date: 10/28/22 Time: 07:32 RN Premium Note Interest Calculator Clerk on Floor Date: 10/28/22 Time: 08:30 Premium Note Interest Calculator Clerk: Nisa BOWEN Scale in Room Date: 10/28/22 Time: 07:50 OB Emergency Cart at Bedside Date: 10/28/22 Time: 07:50 Webber Catheter Urinary Catheter Date of Insertion: 10/28/22 Time of insertion: 08:00 Urinary Catheter Size: 16 Inserted by: Elke Blood Started Date: 10/28/22 Time: 09:30 Second Provider in Room Date: 10/28/22 Time: 08:01 Provider: Deanna Smith Total Blood Loss for PPH Event Quantitative Blood Loss: 1,842 Transported to OR Date: 10/28/22 Time: 09:10
--- NOTE | 2022-10-30 09:34 | W.PM.OBDISCH ---
Date of service: 10/30/22 Time of Service: 09:34 DS: Diagnosis Discharge Diagnosis (1) Vaginal delivery: Status: Acute Asessment and Plan: Status post vaginal delivery complicated by shoulder dystocia (2) hemorrhage: Status: Acute Asessment and Plan: hemorrhage, 200 mL. Received 2 units packed red blood cells, oxytocics, examined anesthesia, uterine curettage. Stable postop day 2. (3) Shoulder dystocia, delivered, current hospitalization: Status: Acute (4) Housing insecurity: Status: Acute Asessment and Plan: environmental services attendant engaged (5) Rubella non-immune status, antepartum: Status: Acute Asessment and Plan: We will need rubella immunization at her 6-week checkup (6) Gestational diabetes: Status: Acute Asessment and Plan: 2-hour glucose tolerance test at 6-week checkup Discharge Plan Disposition Patient Disposition: Home Condition: Good Discharge Details Reason For Visit: Gestational Diabetes this is Sharri B[place] from [place] Admit Date/Time: 10/27/22 10:47 Admit Provider: July Bedoya Attending Provider: July Bedoya Primary Care Provider: Michael Fairchild Hospital Course Hospital Course: Patient was admitted for labor induction at term. She had gestational diabetic Beatties with insulin requirement. She had an induction of labor and at delivery a 3-minute shoulder dystocia. She also had a cord avulsion, and retained placenta. After delivery of the placenta, she had a hemorrhage of approximately 2 L. In light of the fact that her placenta was somewhat abnormal appearing, and with her hemorrhage with no other source the decision was made that she go to the operating room for exam under anesthesia and uterine curettage. Due to her large blood loss, she did receive 2 units of packed red blood cells and antibiotic prophylaxis due to significant uterine manipulation. Postoperatively from this point on, she remained stable with a uterus that was firm with appropriate lochia. Vital signs remained stable and her hemoglobin was stable at 8.6. She was discharged home with close follow-up. Her medications will include ibuprofen, Colace, oral and topical Benadryl for some urticaria that delivered within the last 24 hours. environmental services attendant are involved to assist with housing. Home Meds and New Rx's Prescriptions: New ibuprofen 800 mg tablet 800 mg PO Q8H Qty: 30 0RF docusate sodium [Colace] 100 mg capsule 100 mg PO DAILY Qty: 30 0RF diphenhydramine HCl [Benadryl Allergy] 25 mg tablet 25 mg PO Q6H PRNQty: 30 0RF Benadryl 2 % gel 1 applic topical TID PRNQty: 103 1RF Continued albuterol sulfate 0.63 mg/3 mL solution for nebulization 0.63 mg inhalation QID PRN ferrous sulfate 325 mg (65 mg iron) tablet,delayed release (DR/EC) 325 mg PO DAILY Qty: 90 3RF Discontinued alcohol swabs [Alcohol Pads] Pads, Medicated 1 pad topical .4 times daily Qty: 100 2RF insulin glargine [Lantus Solostar U-100 Insulin] 100 unit/mL (3 mL) insulin pen 16 unit subcut QAM Qty: 15 1RF insulin glargine [Lantus Solostar U-100 Insulin] 100 unit/mL (3 mL) insulin pen 24 unit subcut QPM Qty: 15 1RF Rx Instructions: 16 units subcutaneously every morning and 24 units subcutaneously every HS No Action prenat.vits,enedina,vbo-koes-rablv Tablet 1 tab PO DAILY Qty: 30 8RF (DME) pen needle, diabetic [Comfort EZ Pen [place]] 33 gauge x 3/16 needle See Rx Instructions .Route Qty: 100 1RF Rx Instructions: As directed (DME) lancets Misc See Rx Instructions .Route Qty: 100 0RF Rx Instructions: 4 times daily (DME) lancets [OneTouch Delica Lancets] 33 gauge misc See Rx Instructions .Route Qty: 100 3RF Rx Instructions: 4 times daily (DME) lancing device with lancets [OneTouch Delica Lanc Device] Kit See Rx Instructions .Route Qty: 100 2RF Rx Instructions: As directed (DME) OneTouch Ultra Test Strip See Rx Instructions .Route Qty: 100 3RF Rx Instructions: 4 times daily Discharge Instructions Stand Alone Forms: BC Instructions, BC Post Vaginal Deliver Activity:: Pelvic rest Equipment/Supplies:: No Equipment Needed Diet:: As Tolerated Discharge Orders Discharge Orders: Discharge Order (Routine); Ordered 10/30/22 Ordered By: Deanna Smith OB:DS Summary Summary Vaginal Delivery Method: Spontaneaous Episiotomy Description: None Laceration Description: None Laceration Extension: N/A Contraception Discussed Contraception Discussed: Yes (Depo prior to discharge, tubal in the interval.) Contraceptive Plan: Medroxyprogesterone, Gender-Baby A: Female weight: 8 lb 1.279 oz Status at Discharge Functional status at discharge: independent ambulation Overall status at discharge: patient is progressing back to baseline Mental Status: mental status grossly normal Speech and Movement: speech and movement normal Mood: congruent mood Affect: normal affect Exam Physical Exam Vital signs: Temp Pulse Resp BP Pulse Ox 98.2 F 80 18 113/72 99 10/30/22 07:35 10/30/22 07:35 10/30/22 07:35 10/30/22 07:35 10/30/22 07:35 Narrative: See physical examination from progress note dated 10/30/2022. PFSH All Active Problems (Updated 10/29/22 @ 17:09 by July Bedoya CNM) Housing insecurity (Acute) Shoulder dystocia, delivered, current hospitalization (Acute) Vaginal delivery (Acute) hemorrhage (Acute) Depression (Chronic) Gestational diabetes (Acute) Rubella non-immune status, antepartum (Acute) Positive urine drug screen (Acute) thc + 29 weeks BMI 40.0-44.9, adult (Acute) Late care (Acute) Asthma (Chronic) uses inhaler Medical History (Updated 10/29/22 @ 17:09 by July Bedoya CNM) ASCUS with positive high risk HPV cervical (06/15/14) History of abnormal cervical Pap smear Normal 2018 and 2021 History of retained placenta manual removal, 2021 no blood transfusion No significant past medical history Surgical History No significant past surgical history Family History Father Diabetes Maternal Grandmother Diabetes Maternal Grandfather Diabetes Self Depression sees pychiatrist Mili Vergara Mother Asthma Other Stroke Social History Smoking/Tobacco Use Status: Current every day Tobacco Type: cigarettes Smoking risk assessment performed?: Yes Alcohol Intake: current Alcohol Intake frequency: a few times a week Alcohol type: beer, wine and hard liquor Drug use: Never Substance use type: does not use Do you feel safe at home: Yes Do you feel safe in your relationship?: Yes History History 4 Para 3 Hx # Term Pregnancies 3 Multiple births Hx # Pregnancies Ectopic pregnancies AB induced Hx Number of Living Children AB spontaneous Past Pregnancies Del. Date GA/Weeks # Preg Succ Route Wgt Sex Labor Lgth Anesthesia Location [facility] [place] 01/17/11 41 No Yes vaginal 6 lb 2 oz Female 12 [facility] 03/20/15 40 No Yes vaginal 7 lb 8 oz Male 12 [facility] 11/30/21 39 No Yes vaginal 6 lb 3 oz Female 4 [facility] Delivery Date: 01/17/11 Last Updated [facility]: [facility]: 03/20/15 Last Updated by: July Bedoya CNM [facility] Delivery Date: 11/30/21 Last Updated by: July Bedoya CNM retained placenta with manual removal, Dee Dee Amos DS: Data Vitals/I&O Vitals and I&O: Vital Signs Temperature 98.2 F 10/30/22 07:35 Temperature Source Oral 10/30/22 07:35 Pulse 80 10/30/22 07:35 Pulse Rhythm Regular 10/30/22 07:35 Respiratory Rate 18 10/30/22 07:35 Respiratory Depth Normal 10/29/22 20:11 Blood Pressure 113/72 10/30/22 07:35 Blood Pressure Mean 85 10/30/22 07:35 Pulse Oximetry 99 10/30/22 07:35 Respiratory End-tidal CO2 31 10/28/22 10:24 Oxygen Delivery Method Room Air 10/28/22 11:10 Oxygen Flow Rate 0 10/28/22 11:10 Pain Level 0 10/29/22 20:11 Intake & Output 10/29/22 10/29/22 10/30/22 11:59 23:59 11:59 Intake Total 450 / 900 450 / 900 Output Total 840 / 1890 1050 / 1890 Balance -390 / -990 -600 / -990 Intake: IV 0 / 0 Oral 450 / 900 450 / 900 Output: Urine 840 / 1890 1050 / 1890 Other: Urine Color Pale Pale Comment Webber out 10/29
== END 2022-10-30 11:20 | disposition home or self-care (01) | DRG 797 ==
PROVIDERS: Obstetrics & Gynecology; Admitting Provider Advanced Practice Midwife; PCP Neuromusculoskeletal Medicine & OMM; Visit Provider Advanced Practice Midwife
PROC: 10D17ZZ Extraction of Products of Conception, Retained, Via Natural or Artificial Opening (ICD-10-PCS; CPT 59160; principal; 2022-10-28 09:00)
DX: O24.424 Gestational diabetes mellitus in childbirth, insulin controlled (principal); O72.1 Other immediate postpartum hemorrhage; Z37.0 Single live birth; O72.2 Delayed and secondary postpartum hemorrhage; F17.210 Nicotine dependence, cigarettes, uncomplicated; O12.14 Gestational proteinuria, complicating childbirth; O66.0 Obstructed labor due to shoulder dystocia; Z59.819 Housing instability, housed unspecified; Z3A.39 39 weeks gestation of pregnancy; J45.909 Unspecified asthma, uncomplicated; O99.344 Other mental disorders complicating childbirth; F32.A Depression, unspecified; O99.334 Smoking (tobacco) complicating childbirth; O99.52 Diseases of the respiratory system complicating childbirth; O69.3XX0 Labor and delivery complicated by short cord, not applicable or unspecified; O69.2XX0 Labor and delivery complicated by other cord entanglement, with compression, not applicable or unspecified; L50.9 Urticaria, unspecified; O43.893 Other placental disorders, third trimester; N85.8 Other specified noninflammatory disorders of uterus
CPT/HCPCS: 59160; 36415; 85027; 86850; 86900; 86901; 86920; 87635; 88305; 85025; 88307; 94640; J1050; J2210; J2250; J2405; J2704; J3010; J3490; J7614; P9016

== ENCOUNTER 2022-10-30 23:03 | Emergency (ER) | payer MEDICAID, SELFPAY ==
[2022-10-30 23:07] VITALS: BP 130/89; PULSE 115; RESP 20; TEMP 36.3; O2SAT 99
--- NOTE | 2022-10-30 23:10 | ED.GENADUL_ITS ---
Discharge Plan Disposition Patient Disposition: Home Condition: Stable Discharge Details Clinical Impression: Urticaria Primary Care Provider: Michael Fairchild ED Provider: Chelita Sampson Home Meds and New Rx's Prescriptions: New prednisone 20 mg tablet See Rx Instructions .ROUTE .COMPLEX Qty: 12 0RF Rx Instructions: Take 3 tabs daily for 2 days, then 2 tabs daily for 2 days, then 1 tab daily for 2 days Continued albuterol sulfate 0.63 mg/3 mL solution for nebulization 0.63 mg inhalation QID PRN prenat.vits,enedina,oze-[id number]-[id number] Tablet 1 tab PO DAILY Qty: 30 8RF (DME) pen needle, diabetic [Comfort EZ Pen [employer]] 33 gauge x 3/16 needle See Rx Instructions .Route Qty: 100 1RF Rx Instructions: As directed ferrous sulfate 325 mg (65 mg iron) tablet,delayed release (DR/EC) 325 mg PO DAILY Qty: 90 3RF (DME) lancets Misc See Rx Instructions .Route Qty: 100 0RF Rx Instructions: 4 times daily (DME) lancets [OneTouch Delica Lancets] 33 gauge misc See Rx Instructions .Route Qty: 100 3RF Rx Instructions: 4 times daily (DME) lancing device with lancets [OneTouch Delica Lanc Device] Kit See Rx Instructions .Route Qty: 100 2RF Rx Instructions: As directed (DME) OneTouch Ultra Test Strip See Rx Instructions .Route Qty: 100 3RF Rx Instructions: 4 times daily ibuprofen 800 mg tablet 800 mg PO Q8H Qty: 30 0RF docusate sodium [Colace] 100 mg capsule 100 mg PO DAILY Qty: 30 0RF diphenhydramine HCl [Benadryl Allergy] 25 mg tablet 25 mg PO Q6H PRNQty: 30 0RF Benadryl 2 % gel 1 applic topical TID PRNQty: 103 1RF Discharge Instructions Instructions: Urticaria (ED) Additional Instructions: Your rash appears consistent with an allergic reaction. The etiology of your rash is unclear but can be due to multiple sources in the environment, including topical products or foods. Your rash and symptoms have been discussed with obstetrics and they have supported the use of a short course of oral steroids and Benadryl. You were given 1 dose of oral steroids and Benadryl here and a prescription for oral steroids has been sent electronically to your pharmacy to take as directed until finished. Continue to use oral Benadryl every 6 hours as needed and directed for itching. You do not need to continue using the Benadryl lotion if you have no relief with this. The obstetrics team have recommended that you can continue to breast-feed while taking the oral steroids and Benadryl as only possible small amounts of these medications can be transmitted through the breastmilk. Please note that Benadryl and steroids can decrease your milk supply. Follow-up with your obstetrics team this week for reevaluation. Return immediately to the emergency department if you develop any worsening or new concerning symptoms such as difficulty swallowing, difficulty breathing, worsening rash or any other concerns. Referrals: [facility] [place] Discharge Data Discharge Date/Time-TO BE ENTERED AT DEPARTURE: 10/30/22 23:54 Discharge Physician: Chelita Sampson Medical Decision Making 27-year-old female G4, P4 currently 2 days after a spontaneous vaginal delivery complicated by shoulder dystocia and hemorrhage requiring uterine curettage and blood transfusion presents for hives since yesterday. She states the rash started on her arms but now has progressed to involve her entire body, including her face today. She denies any difficulty breathing or swallowing. Review of records notes that patient received 2 units PRBCs on return to the OR for hemorrhage over 2 days ago. She reportedly did not develop any immediate allergic like symptoms after her blood transfusion and states her symptoms gradually began on her arms yesterday and then progressed to involve her entire body and face today. Rash appears consistent with urticaria and is noted to face, bilateral upper and lower extremities, abdomen and back. Her oropharynx appears normal. Her lungs are clear throughout without wheezing. Her heart rate is elevated but otherwise the remainder of her vitals are reassuring with normal respiratory rate and oxygen saturation. Suspect allergic-like reaction. History and presentation does not appear consistent with blood transfusion related reaction. Discussed with patient that considering the extent of her urticaria, oral steroids would likely be most beneficial. She reports she is in the process of trying to breast-feed but baby is having difficulty latching so she is supplementing with formula. Patient would be agreeable with steroids if cleared by OB. Case discussed with OB on-call Dr. Crow --agreeable with plan for a short course of oral steroids and Benadryl. Recommends that patient can continue breast-feeding while taking these medications as only a small amount can be transferred in the milk and risk is usually decreased milk supply. Patient was given 1 dose of oral prednisone and Benadryl here and a prescription for prednisone sent electronically to her pharmacy. Advised to follow up with the primary care doctor for re-evaluation. Usual and customary return precautions given prior to discharge. HPI General Mode of arrival: ambulatory . Date/Time Provider Initiated Documentation: 10/30/22 23:06 . Limitations to Documentation: no limitations . Information obtained by: patient . HPI Narrative: Patient is a 27-year-old female who is 2 days status post spontaneous vaginal delivery complicated by shoulder dystocia and hemorrhage requiring return to the OR for uterine curettage and blood transfusion presents for hives since yesterday. Patient states a red itchy rash started on her arms yesterday and then progressed to her legs, torso and now face. Patient states her OB team was aware of this rash yesterday prior to discharge from the hospital and she had a prescription for oral Benadryl and Benadryl lotion sent electronically to her pharmacy. She states she attempted to get the lotion but the pharmacy did not have it in stock until tomorrow. Patient states her last dose of Benadryl was earlier this morning. She states throughout the day the rash is worsened. She states she did use the hospital lotion, shampoo and conditioner while here over the weekend. She denies any other new medications or exposures. She states she did not call her OB team tonight to inform them of her worsening rash. She denies any difficulty swallowing, difficulty breathing, chest pain, nausea, vomiting or abdominal pain. Related Data Home Medications Medication Instructions Recorded Confirmed albuterol sulfate 0.63 mg/3 mL 0.63 mg inhalation QID PRN 08/02/22 10/30/22 solution for nebulization ferrous sulfate 325 mg (65 mg 325 mg PO DAILY #90 tabs 08/16/22 10/30/22 iron) tablet,delayed release lancets #100 ea 08/24/22 10/27/22 prenat.vits,enedina,[id number]-[id number] 1 tab PO DAILY #30 tabs 09/13/22 10/30/22 lancets 33 gauge (OneTouch Delica #100 ea 09/15/22 10/27/22 Lancets) lancing device with lancets kit #100 ea 09/20/22 10/27/22 ([employer] Lancing Device kit) blood sugar diagnostic ([facility] ea 09/21/22 10/27/22 Ultra Test strips) pen needle, diabetic 33 gauge x #100 ea 10/04/22 10/27/22 316 (Comfort EZ Pen [employer]) diphenhydramine HCl 2 % topical 1 applic topical TID PRN #103 mL 10/30/22 10/30/22 gel (Benadryl) diphenhydramine HCl 25 mg tablet 25 mg PO Q6H PRN #30 tabs 10/30/22 10/30/22 (Benadryl Allergy) docusate sodium 100 mg capsule 100 mg PO DAILY #30 caps 10/30/22 10/30/22 (Colace) ibuprofen 800 mg tablet 800 mg PO Q8H #30 tabs 10/30/22 10/30/22 prednisone 20 mg tablet See Rx Instructions .Route 10/30/22 .COMPLEX #12 tabs Previous Rx's Medication Instructions Recorded ferrous sulfate 325 mg (65 mg 325 mg PO DAILY #90 tabs 08/16/22 iron) tablet,delayed release lancets #100 ea 08/24/22 prenat.vits,enedina,sdm-[id number]-obidk 1 tab PO DAILY #30 tabs 09/13/22 lancets 33 gauge ([facility] #[facility] ea 09/15/22 Lancets) lancing device with lancets kit #100 ea 09/20/22 ([employer] Lancing Device kit) blood sugar diagnostic ([facility] ea 09/21/22 Ultra Test strips) pen needle, diabetic 33 gauge x #100 ea 10/04/22 3/16 (Comfort EZ Pen [employer]) diphenhydramine HCl 2 % topical 1 applic topical TID PRN #103 mL 10/30/22 gel (Benadryl) diphenhydramine HCl 25 mg tablet 25 mg PO Q6H PRN #30 tabs 10/30/22 (Benadryl Allergy) docusate sodium 100 mg capsule 100 mg PO DAILY #30 caps 10/30/22 (Colace) ibuprofen 800 mg tablet 800 mg PO Q8H #30 tabs 10/30/22 prednisone 20 mg tablet See Rx Instructions .Route 10/30/22 .COMPLEX #12 tabs Allergies Allergy/AdvReac Type Severity Reaction Status Date / Time No Known Drug Allergies Allergy Verified 10/18/22 13:12 General Stated Complaint: RashLesion MARISOL: 3 Review of Systems All systems reviewed & are unremarkable except as noted in HPI and below Constitutional Constitutional: Reports as per HPI, Denies chills and Denies fever(s) Eyes Eyes: Denies blurry vision ENT Ears, Nose, Mouth, and Throat: Denies dizziness, Denies sore throat and Denies throat swelling Cardiovascular Cardiovascular: Denies chest pain and Denies dyspnea Respiratory Respiratory: Denies cough and Denies dyspnea Gastrointestinal Gastrointestinal: Denies abdominal pain, Denies diarrhea and Denies vomiting Genitourinary Genitourinary: Denies hematuria and Denies dysuria Musculoskeletal Musculoskeletal: Denies back pain and Denies numbness Integumentary/Breasts Skin/Breast: Denies lesions and Reports rash Neurologic Neurologic: Denies dizziness, Denies localized weakness and Denies numbness Allergic/Immunologic Allergic/Immunologic: Denies throat swelling PFSH All Active Problems (Updated 10/31/22 @ 00:05 by NATANAEL FINLEY) Urticaria (Acute) Housing insecurity (Acute) Vaginal delivery (Acute) hemorrhage (Acute) Depression (Chronic) Gestational diabetes (Acute) Rubella non-immune status, antepartum (Acute) Positive urine drug screen (Acute) thc + 29 weeks BMI 40.0-44.9, adult (Acute) Late care (Acute) Asthma (Chronic) uses inhaler Medical History (Updated 10/31/22 @ 00:05 by NATANAEL FINLEY) ASCUS with positive high risk HPV cervical (06/15/14) History of abnormal cervical Pap smear Normal 2018 and 2021 History of retained placenta manual removal, 2021 no blood transfusion No significant past medical history Shoulder dystocia, delivered, current hospitalization Surgical History No significant past surgical history Family History Father Diabetes Maternal Grandmother Diabetes Maternal Grandfather Diabetes Self Depression sees pychiatrist Mili Vergara Mother Asthma Other Stroke Social History Smoking/Tobacco Use Status: Current every day Tobacco Type: cigarettes Smoking risk assessment performed?: Yes Alcohol Intake: current Alcohol Intake frequency: a few times a week Alcohol type: beer, wine and hard liquor Drug use: Never Substance use type: does not use Do you feel safe at home: Yes Do you feel safe in your relationship?: Yes History History 4 Para 3 Hx # Term Pregnancies 3 Multiple births Hx # Pregnancies Ectopic pregnancies AB induced Hx Number of Living Children AB spontaneous Past Pregnancies Del. Date GA/Weeks # Preg Succ Route Wgt Sex Labor Lgth Anesth esia Location [facility] 01/17/11 41 No Yes vaginal 2778.253 g Female 12 [facility] 03/20/15 40 No Yes vaginal 3401.943 g Male [facility] [place] 11/30/21 39 No Yes vaginal 2806.603 g Female 4 [facility] [place] Delivery Date: 01/17/11 Last Updated by: July Bedoya CNM [facility] Delivery Date: 03/20/15 Last Updated by: July Bedoya CNM [facility] Delivery Date: 11/30/21 Last Updated by: July Bedoya CNM retained placenta with manual removal, Rapid Dee Dee swanson Exam Const General: cooperative, healthy appearing and no acute distress [facility] Head: normal to inspection Face and sinus: normal facial exam Eyes General: appearance normal, both eyes and all related structures Pupils: PERRL EOM: EOM intact bilaterally Neck Neck: normal visual inspection and No submandibular swelling Lymphatic: no lymphadenopathy noted Chest Chest: normal inspection of the chest and no tenderness Resp Effort & Inspection: normal respiratory effort and able to speak in complete sentences Auscultation: clear to auscultation bilaterally Cardio Rate: regular rate Rhythm: regular rhythm GI Inspection: normal to inspection Palpation: soft, not firm, not rigid and nontender Auscultation: normal bowel sounds Skin Other: Erythematous raised circular papules some single and others noted in clusters 2 face, torso, bilateral upper and lower extremities. No central clearing noted. No vesicles or abscesses noted. No bleeding or drainage noted. Neuro General: patient alert, patient awake and patient oriented x3 Cognition: normal cognition Speech: speech normal Motor: muscle tone normal throughout Sensory Exam: no sensory deficits noted Extrem General: normal to inspection, full ROM, capillary refill normal, no calf tenderness bilaterally and no edema Psych Appearance: grossly normal Mental Status: mental status grossly normal Speech and Movement: speech and movement normal Affect: normal affect
[2022-10-30] MEDS: diphenhydrAMINE 25 MG CAP PO (23:46)
[2022-10-30] MEDS: predniSONE 20 MG TAB 60 MG PO (23:46)
== END 2022-10-30 23:54 | disposition home or self-care (01) ==
PROVIDERS: Emergency Provider Physician Assistant; PCP Neuromusculoskeletal Medicine & OMM
DX: L50.9 Urticaria, unspecified (principal); O99.73 Diseases of the skin and subcutaneous tissue complicating the puerperium
CPT/HCPCS: 99283; 99284; J7512

== ENCOUNTER 2022-12-18 03:26 | Outpatient (CLI) | payer MEDICAID, SELFPAY ==
[2022-12-18 14:11] LABS: HCT 36.5 % (36.0-46.0); HGB 11.2 g/dL (11.2-15.7); MCH 25.8 pg (27.0-33.0); MCHC 30.7 % (32.0-36.0); MCV 84 fL (80-95); MPV 11.6 fL (8.0-11.0); Platelet Count 192 10^3/uL (130-400); RBC 4.34 10^6/uL (3.93-5.22); RDW 15.4 % (11.7-14.6); RDW-SD 46.8 fL; WBC 8.19 10^3/uL (4.4-10.8)
[2022-12-18 16:24] LABS: GTT Comment See Comments
== END 2022-12-18 03:27 | disposition home or self-care (01) ==
LOC: LBO 03:26
PROVIDERS: Advanced Practice Midwife; PCP Neuromusculoskeletal Medicine & OMM; Visit Provider Obstetrics & Gynecology
DX: Z01.818 Encounter for other preprocedural examination (principal)
CPT/HCPCS: 36415; 85027; 86850; 86900; 86901; 82951

== ENCOUNTER 2022-12-20 08:57 | Day surgery (SDC) | payer MEDICAID, SELFPAY ==
[2022-12-20] VITALS (11 sets, daily range): BP systolic 101–136; BP diastolic 44–73; PULSE 52–73; RESP 12–31; TEMP 36.1–36.6; O2SAT 92–97; BMI 41.3
--- NOTE | 2022-12-20 06:53 | ANES.PREOP_ITS ---
General Info Date of Service Date Performed: 12/20/22 Height: 5 ft 1 in Weight: 99.337 kg Body Mass Index (BMI): 41.3 Surgical Procedure: Operation Date: 12/20/22 10:55 Proposed Procedure Side Surgeon p Salpingectomy Laparoscopic Bilateral Deanna Smith DO Meds Allergies and Home Medications Allergies Allergy/AdvReac Type Severity Reaction Status Date / Time No Known Drug Allergies Allergy Verified 12/20/22 09:15 Home Medication Medication Instructions Recorded albuterol sulfate 0.63 mg/3 mL 0.63 mg inhalation QID PRN 08/02/22 solution for nebulization ibuprofen 800 mg tablet 800 mg PO Q8H #30 tabs 10/30/22 Current Visit Medications: Current Medications Generic Name Dose Route Start Last Admin Trade Name Freq PRN Reason Stop Dose Admin Ringer's Solution 1,000 mls @ 125 mls/hr 12/20/22 06:00 IV 01/18/23 23:59 INFUSION KARIN IV Miscellaneous Supplies 1 each 12/20/22 06:00 Iv Access IV 01/18/23 23:59 DIRECTED KARIN Sodium Chloride 0 ml 12/20/22 06:00 Normal Saline Flush 10 Ml Syr IV 01/18/23 23:59 PRN PRN Sodium Chloride 0 ml 12/20/22 06:00 Normal Saline 10 Ml Vial IJ 01/18/23 23:59 DIRECTED PRN Sterile Water 0 ml 12/20/22 06:00 Water,Injection,Sterile 10 Ml Vial IJ 01/18/23 23:59 DIRECTED PRN PFSH Active Problems Active Problems: Problem Status Onset Code Pre-op testing Z01.818 Housing insecurity Z59.819 Vaginal delivery O80 hemorrhage O72.1 Depression F32.A Gestational diabetes O24.419 Rubella non-immune status, antepartum O09.899, Z28.39 Positive urine drug screen R82.5 BMI 40.0-44.9, adult Z68.41 Late care O09.30 Asthma J45.909 Medical History Medical History ASCUS with positive high risk HPV cervical (06/15/14) History of abnormal cervical Pap smear Normal 2018 and 2021 History of retained placenta manual removal, 2021 no blood transfusion No significant past medical history Shoulder dystocia, delivered, current hospitalization Surgical History Surgical History No significant past surgical history Tobacco Smoking/Tobacco Use Status: Former Tobacco Use Alcohol Alcohol Intake: current Alcohol intake frequency: a few times a week Alcohol type: beer, wine and hard liquor Substance Use Substance use: Occasionally Substance use type: marijuana Prental History History 4 Para 3 Hx # Term Pregnancies 3 Multiple births Hx # Pregnancies Ectopic pregnancies AB induced Hx Number of Living Children 4 AB spontaneous Past Pregnancies Del. Date GA/Weeks # Preg Succ Route Wgt Sex Labor Lgth Anesth esia Location [facility] 01/17/11 41 No Yes vaginal 2778.253 g Female 12 [facility] 03/20/15 40 No Yes vaginal 3401.943 g Male 12 [facility] 11/30/21 39 No Yes vaginal 2806.603 g Female 4 [facility] [place] 10/28/22 39 No Yes vaginal 3662.758 g Female 20hrs [address] [facility] KATE Sanchez shoulder dystocia hemorrhage transfusion Delivery Date: 01/17/11 Last Updated by: July Bedoya CNM [place] Delivery Date: 03/20/15 Last Updated by: July Bedoya CNM [facility] Delivery Date: 11/30/21 Last Updated by: July Bedoya CNM retained placenta with manual removal, Rapid deliveMarylin jamaa Delivery Date: 10/28/22 Last Updated by: FRED Staples Ni; pp hemorrhage due to retained placenta, OR for D&C; Janet, DO; 2L blood loss prior to surgery; received 2 units red blood cells; [place]/Shayna Maneuver for shoulder dystocia Vital Signs and Lab Results Vital Signs Most Recent Vital Signs in EMR: Temp Pulse Resp BP Pulse Ox 36.3 C L 70 18 119/73 97 12/20/22 09:00 12/20/22 09:00 12/20/22 09:00 12/20/22 09:00 12/20/22 09:00 Lab Results Blood Type / Crossmatch: Patient ABO/Rh O Positive 12/18/22 Antibody Screen NEGATIVE 12/18/22 Complete Blood Count: White Blood Count 8.19 10^3/uL (4.4-10.8) 12/18/22 14:05 Red Blood Count 4.34 10^6/uL (3.93-5.22) 12/18/22 14:05 Hemoglobin 11.2 g/dL (11.2-15.7) 12/18/22 14:05 Hematocrit 36.5 % (36.0-46.0) 12/18/22 14:05 Platelet Count 192 10^3/uL (130-400) 12/18/22 14:05 Complete Metabolic Panel: No Data to Display Liver Function Panel: No Data to Display Coagulation Panel: No Data to Display Cardiac Panel: No Data to Display Arterial Blood Gas: No Data to Display Venous Blood Gas: No Data to Display Pancreas Panel: No Data to Display Thyroid Panel: No Data to Display Infectious Disease: No Data to Display Blood Cultures: No Data to Display Toxicology Panel: No Data to Display Panel: No Data to Display Anesthesia Assessment and Plan Anesthesia History Personal History: No History of Anesthesia Complications Family History: No Family History of Anesthesia Complications Exercise Tolerance Exercise Tolerance: Metabolic Equivalents>4 Cardiac & Pulmonary Exam Cardiac Exam: Normal S1/S2 Heart Sounds Pulmonary Exam: Clear Bilateral Breath Sounds Implantable Cardiac Device Does patient have a Pacemaker or an ICD?: No Airway Exam Known Difficult Airway: No Mallampati Class: 3 Mouth Opening: Normal (> 3cm) Thyromental Distance: Greater than 3 cm Neck Range of Motion: Full ROM Neck Circumference: Thick Teeth Condition: Normal Dentition ASA Classification ASA Score: ASA 2 Emergency Case?: No NPO Status NPO Status: NPO Clears >2 hours, Solids >8 hours Status Status: Negative HCG Anesthesia Plan Resuscitation Status: Full Code Anesthesia Technique: General Anesthesia Airway Planned: Endotracheal Tube Monitors Used: Standard Monitors Preoperative Comments:: 27 yo for lap salping for desired sterility. Sig PMHx: BMI >40, depression, gestational DM (currently lantus), asthma (albuterol-rare, mostly with colds), cannabis use.
[2022-12-20] MEDS: Lactated Ringers 1,000 ML 125 ML IV (09:48)
--- NOTE | 2022-12-20 11:30 | FALL_PTH ---
PATIENT: Hailee Bae LOC: [facility] U#:[id number] AGE/SX: 27/F ROOM: RE12/20/[address]: Deanna Smith DO : 1995 BED: DIS: 12/20/2022 SPEC #: [id number] RECD: 12/20/22 17:47 STATUS: AARON RE #: [id number] HALINA: 12/20/22 11:[address]: Deanna Smith DEPT: Surgical Specimen RECD BY: Jazzy Mckoy ENTERED: 12/20/22 17:48 SP TYPE: Fall OTHR DR: Michael Fairchild Tissues: 1 - FALLOPIAN TUBE (STERILIZATION) 2 - FALLOPIAN TUBE (STERILIZATION) Procedures: GROSS AND MICRO LEVEL 2 Comments: [id number]
--- NOTE | 2022-12-20 11:44 | W.PM.OP ---
Date of service: 12/20/22 Time of Service: 11:44 Operative Note Operative Note DATE OF PROCEDURE: 12/20/22 PRE-OP DIAGNOSIS: Undesired fertility POST-OP DIAGNOSIS: same PROCEDURE: Laparoscopic bilateral salpingectomy SURGEON: Deanna Smith ANESTHESIA TYPE: Local By Surgeon and General LMA/ETT Refer to Anesthesia Record ESTIMATED BLOOD LOSS: 5 PATHOLOGY: other (1. Left fallopian tube 2. Right fallopian tube) COMPLICATIONS: None Patient was transported to: PACU Patient's condition: stable Indications: Undesired fertility Findings: Normal-appearing tubes, ovaries, uterus. Procedure Description: After full informed consent was obtained, patient was taken the operating room with an IV running. She is placed in the dorsal supine position and endotracheal intubation performed for the administration of general anesthesia with ease. She was then placed in the modified dorsal lithotomy position and prepped and draped in usual sterile fashion. No antibiotic prophylaxis was warranted. Pneumatic compression stockings were used for DVT prophylaxis. Exam under anesthesia revealed a uterus that was midline and mobile without evidence of adnexal masses. Her bladder was drained for approximately 100 cc of clear yellow urine. At this point speculum was inserted into the vaginal vault and a [employer] uterine manipulator was placed for uterine manipulation throughout the procedure. At this point attention was turned to the abdomen where a small infraumbilical skin incision was made. Cord percent Marcaine had been infiltrated. The anterior abdominal wall was elevated with sharp towel clips and a varies needle inserted into the abdomen. Pneumoperitoneum was created with a maximum pressure of 15 mmHg of CO2 gas. Under direct visualization and Optiview, bladeless 10 mm scope was placed. There is no evidence of intra-abdominal pathology or trauma. A second and third right and left lower quadrant trocar sites were placed under direct visualization after infiltration of quarter percent Marcaine with 5 mm ports. At this point attention was turned to the left fallopian tube which was elevated, and cautery transected. Similar procedure was carried out on the right fallopian tube. Both pedicles were noted to be hemostatic. Low pressure was used to again evaluate the pedicle sites which are hemostatic. At this point the procedure was terminated, pneumoperitoneum released. All instruments removed from the abdomen and uterus. The fascial incision was closed using 0 Vicryl suture in a simple interrupted fashion. Skin edges were reapproximated with 4-0 undyed Monocryl and Steri-Strips and sterile dressing were placed. Patient was returned to the dorsal supine position and awoke from anesthesia without difficulty. Complications: None apparent EBL: 5 mL Pathology: 1. Left fallopian tube. 2 right fallopian tube. Findings: Normal-appearing tubes, ovaries, uterus. Fluids: Crystalloid per anesthesia.
[2022-12-20] MEDS: Bupivacaine 0.25% Pres-Free 30 ML VIAL (11:45)
--- NOTE | 2022-12-20 12:23 | ANES.POST_ITS ---
Postoperative Evaluation Date, Time and Location Date Performed: 12/20/22 Time Performed: 12:24 Patient Location: PACU Vital Signs Most Recent Imported Vital Signs: Most Recent Vital Signs Temp Pulse Resp BP Pulse Ox 36.4 C L 73 31 H 101/50 L 92 12/20/22 12:10 12/20/22 12:10 12/20/22 12:10 12/20/22 12:10 12/20/22 12:10 Pain Score Most Recent Pain Score: Most Recent Pain Score Pain Level 0 12/20/22 12:10 Assessment Mental Status: Awake (Alert & Oriented to Patient Baseline) Airway and Respiratory Function: Patent airway with normal (patient baseline) respiratory exam Cardiovascular Function: Hemodynamically Stable Hydration Status: Adequately Hydrated Nausea & Vomiting: No Nausea or Vomiting Pain: Pain is tolerable per patient Peripheral Nerve Block: Patient did not receive a nerve block Teaching Patient Teaching: Advised to seek followup for the following concerns (See e xplanation) Concerns: Poorly Controlled Diabetes
[2022-12-20] MEDS: HYDROmorphone 2 MG/ML SYR IVP ×3 (12:31→12:58)
[2022-12-20] MEDS: Normal Saline 10 ML VIAL IJ (12:32)
[2022-12-20] MEDS: oxyCODONE 5 mg/Acetaminophen 325 mg TAB PO (13:36)
--- NOTE | 2022-12-20 13:40 | W.ANESPOSTOP ---
Postoperative Evaluation Date, Time and Location Date Performed: 12/20/22 Time Performed: 13:00 Patient Location: PACU Vital Signs Most Recent Imported Vital Signs: Most Recent Vital Signs Temp Pulse Resp BP Pulse Ox 36.3 C L 52 L 18 112/67 95 12/20/22 13:17 12/20/22 13:17 12/20/22 13:17 12/20/22 13:17 12/20/22 13:17 Pain Score Most Recent Pain Score: Most Recent Pain Score Pain Level 3 12/20/22 13:17 Assessment Mental Status: Awake (Alert & Oriented to Patient Baseline) Airway and Respiratory Function: Patent airway with normal (patient baseline) respiratory exam Cardiovascular Function: Hemodynamically Stable Hydration Status: Adequately Hydrated Nausea & Vomiting: No Nausea or Vomiting Pain: Pt. Denies Any Pain Peripheral Nerve Block: Patient did not receive a nerve block
== END 2022-12-20 14:45 | disposition home or self-care (01) ==
PROVIDERS: PCP Neuromusculoskeletal Medicine & OMM; Visit Provider Obstetrics & Gynecology
PROC: (CPT 58661; principal; 2022-12-20 10:45)
DX: Z30.2 Encounter for sterilization (principal); N70.91 Salpingitis, unspecified
CPT/HCPCS: 58661; 81025; 88302; J0131; J1100; J1170; J2250; J2405; J2704; J3010; J3475